=== PATIENT | male | born 1940 | race African-American/Black ===

== ENCOUNTER 2022-11-19 20:04 | Inpatient (IN) | payer MEDICARE, OTHER ==
[~2022-11-19 20:04] MED LIST: Iopamidol-370 76% 500 ML MDV (1 ML CHARGE) ONE
[2022-11-19 20:27] LABS: #Basophils 0.1 thou/uL (0.0-0.2); #Eosinphils 0.1 thou/uL (0.0-0.7); #Lymphocytes 2.3 thou/uL (1.20-3.40); #Monocytes 0.7 thou/uL (0.11-0.59); #Neutrophils 8.5 thou/uL (1.40-6.50); %Basophils 0.7 % (0.0-1.0); %Eosinophils 0.8 % (0.0-10.0); %Lymphocytes 19.9 % (21.0-51.0); %Monocytes 6.1 % (0.0-10.0); %Neutrophils 72.5 % (42.0-75.0); Hemoglobin 12.6 g/dL (14.0-18.0); Mean Corpuscular HGB CONC 33.8 g/dL (32.0-36.0); Mean Corpuscular Hemoglobin 33.7 pg (27.0-31.0); Mean Corpuscular Volume 99.9 fl (78.0-98.0); Mean Platelet Volume 9.5 fL (7.4-10.4); Platelet Count 167 10x3/uL (130-400); RBC Distribution Width 13.3 % (11.5-14.5); Red Blood Cell (RBC) Count 3.73 mill/uL (4.70-6.10); White Blood Cell (WBC) Count 11.7 10x3/uL (4.8-10.8)
[2022-11-19] MEDS ORDERED: Pantoprazole 80 MG, Admixture Fee 1 EACH in Sodium Chloride 0.9% 100 ML IVPB SCH (20:30)
[2022-11-19] MEDS ORDERED: Pantoprazole 40 MG VIAL ONE (20:38)
[2022-11-19 20:39] LABS: INR-International Normal Ratio 1.1; PTT 23.2 sec (22.9-36.1); Prothrombin Time 14.4 sec (12.0-14.7)
[2022-11-19 20:48] LABS: ALT (SGPT) 12 U/L (8-55); AST (SGOT) 18 U/L (5-34); Albumin 3.7 g/dL (3.4-4.8); Alkaline Phosphatase 62 U/L (40-110); Anion Gap 17 mmol/L (10-20); BUN (Urea Nitrogen) 20 mg/dL (8.4-25.7); Bilirubin, Total 0.8 mg/dL (0.2-1.2); Calc. Creatinine Clearance 0 mL/min (70-130); Calcium 8.7 mg/dL (7.8-10.44); Carbon Dioxide 20 mmol/L (23-31); Chloride 112 mmol/L (98-107); Estimated GFR 32; Globulin 3.1 g/dL (2.4-3.5); Glucose 124 mg/dL (83-110); Lipase 26 U/L (8-78); Magnesium 1.8 mg/dL (1.6-2.6); Potassium 3.7 mmol/L (3.5-5.1); Protein, Total 6.8 g/dL (5.8-8.1); Sodium 145 mmol/L (136-145)
[2022-11-19 21:08] LABS: CKMB 2.2 ng/mL (0-6.6)
[2022-11-19] MEDS ORDERED: Acetaminophen 325 MG TAB PO PRN (23:41)
[2022-11-20 01:16] LABS: Lactic Acid 2.5 mmol/L (0.5-2.2)
[2022-11-20] MEDS ORDERED: Sodium Chloride 0.9% 1,000 ML IV SCH ×2 (02:15→04:46)
[2022-11-20 04:19] LABS: Bacteria/HPF None Seen HPF (None Seen); Bilirubin Negative (Negative); Blood, Urine Negative (Negative); CAUTI Indications for Culture Dysuria,urgency,freq; Clarity Clear (Clear); Glucose, Urine (Dipstick) Normal (Negative); Ketone, Urine Negative (Negative); Leukocyte Negative Leu/uL (Negative); Nitrite Negative (Negative); Protein, Urine (Dipstick) 20 mg/dL (Neg-Trace); RBC/HPF 0-3 HPF (0-3); Specific Gravity, Urine 1.043 (1.002-1.036); Sperm/HPF Rare HPF (None Seen); Squamous Epithelial None Seen HPF (0-3); Urobilinogen Normal mg/dL (Less than 2); WBC/HPF 0-3 HPF (0-3); pH, Urine 5.5 (5.0-9.0)
[2022-11-20 04:20] LABS: Urine Culture Reflex No No
[2022-11-20 04:24] LABS: #Lymphocytes 2.2 thou/uL (1.20-3.40); #Monocytes 0.6 thou/uL (0.11-0.59); #Neutrophils 6.2 thou/uL (1.40-6.50); %Basophils 0.5 % (0.0-1.0); %Eosinophils 0.5 % (0.0-10.0); %Lymphocytes 24.6 % (21.0-51.0); %Monocytes 6.3 % (0.0-10.0); %Neutrophils 68.2 % (42.0-75.0); Hemoglobin 10.5 g/dL (14.0-18.0); Mean Corpuscular HGB CONC 32.6 g/dL (32.0-36.0); Mean Corpuscular Hemoglobin 32.9 pg (27.0-31.0); Mean Platelet Volume 9.9 fL (7.4-10.4); Platelet Count 132 10x3/uL (130-400); RBC Distribution Width 13.3 % (11.5-14.5); White Blood Cell (WBC) Count 9.1 10x3/uL (4.8-10.8)
[2022-11-20 04:43] LABS: Lactic Acid 4.1 mmol/L (0.5-2.2)
[2022-11-20 04:44] LABS: Anion Gap 15 mmol/L (10-20); BUN (Urea Nitrogen) 23 mg/dL (8.4-25.7); Calc. Creatinine Clearance 47 mL/min (70-130); Carbon Dioxide 16 mmol/L (23-31); Chloride 115 mmol/L (98-107); Estimated GFR 36; Glucose 156 mg/dL (83-110); Sodium 142 mmol/L (136-145)
[2022-11-20 04:55] LABS: Troponin I 0.074 ng/mL (< 0.028)
[2022-11-20] MEDS: Levothyroxine Sodium 50 MCG TAB PO SCH (04:59)
[2022-11-20] MEDS ORDERED: Sodium Chloride 0.9% 500 ML IV SCH (05:00)
[2022-11-20 05:52] LABS: Base Excess (BEa) -11.2 mEq/L (-2.0 to +3.0); CO2 Tension 30.3 mmHg (35.0-45.0); Calcium, Ionized (arterial) 1.11 mmol/L (1.12-1.30); Carboxyhemoglobin (COHb) 1.2 gm% (0.0-3.0); Hemoglobin (Hb) 9.6 g/dL (14.0-18.0); O2 Tension (PaO2), arterial 88.2 mmHg (> 60.0); Potassium - ABG Lab 3.85 mmol/L (3.70-5.30); pH, Arterial 7.29 (7.35-7.45)
[2022-11-20 05:53] LABS: Actual Bicarbonate (HCO3a) 14.2 mEq/L (22-28)
[2022-11-20] MEDS ORDERED: Meropenem 1 GM in Sodium Chloride 0.9% 100 ML IVPB SCH ×3 (06:00→23:59)
[2022-11-20] MEDS ORDERED: Sodium Bicarb 50 MEQ/50 ML VIAL IVP SCH ×2 (06:00)
[2022-11-20 06:29] LABS: #Lymphocytes 1.7 thou/uL (1.20-3.40); #Monocytes 0.8 thou/uL (0.11-0.59); #Neutrophils 8.5 thou/uL (1.40-6.50); %Basophils 0.1 % (0.0-1.0); %Eosinophils 0.3 % (0.0-10.0); %Lymphocytes 15.3 % (21.0-51.0); %Monocytes 7.2 % (0.0-10.0); %Neutrophils 77.1 % (42.0-75.0); Mean Corpuscular HGB CONC 33.4 g/dL (32.0-36.0); Mean Platelet Volume 9.4 fL (7.4-10.4); Platelet Count 137 10x3/uL (130-400); RBC Distribution Width 13.4 % (11.5-14.5); Red Blood Cell (RBC) Count 2.63 mill/uL (4.70-6.10)
[2022-11-20] MEDS: Sodium Bicarbonate 150 MEQ in Sterile Water 1,000 ML IV SCH ×3 (06:37→20:53)
[2022-11-20 06:54] LABS: Lactic Acid 6.4 mmol/L (0.5-2.2)
[2022-11-20 06:57] LABS: ALT (SGPT) 8 U/L (8-55); AST (SGOT) 13 U/L (5-34); Albumin 2.7 g/dL (3.4-4.8); Alkaline Phosphatase 45 U/L (40-110); Anion Gap 16 mmol/L (10-20); BUN (Urea Nitrogen) 24 mg/dL (8.4-25.7); Bilirubin, Total 0.8 mg/dL (0.2-1.2); Calc. Creatinine Clearance 45 mL/min (70-130); Calcium 7.6 mg/dL (7.8-10.44); Carbon Dioxide 17 mmol/L (23-31); Chloride 116 mmol/L (98-107); Estimated GFR 34; Globulin 2.1 g/dL (2.4-3.5); Glucose 140 mg/dL (83-110); Potassium 4.3 mmol/L (3.5-5.1); Protein, Total 4.8 g/dL (5.8-8.1); Sodium 145 mmol/L (136-145)
[2022-11-20 07:21] LABS: Lactic Acid 5.9 mmol/L (0.5-2.2)
[2022-11-20] MEDS ORDERED: Dextrose 5% in Water 1,000 ML IV PRN (07:26)
[2022-11-20] MEDS ORDERED: Dextrose 50% Abboject 50 ML SYRINGE SLOW IVP PRN (07:26)
[2022-11-20 07:29] LABS: Troponin I 0.069 ng/mL (< 0.028)
[2022-11-20] MEDS: Pantoprazole 40 MG VIAL IVP SCH ×2 (08:30→20:00)
[2022-11-20] MEDS: Lactated Ringer's 500 ML IV SCH ×2 (09:47→16:08)
[2022-11-20 10:35] LABS: Hemoglobin 9.4 g/dL (14.0-18.0)
[2022-11-20 10:47] LABS: INR-International Normal Ratio 1.2; Prothrombin Time 16.1 sec (12.0-14.7)
[2022-11-20 12:47] LABS: Hemoglobin 10.8 g/dL (14.0-18.0)
[2022-11-20 13:41] LABS: Troponin I 0.173 ng/mL (< 0.028)
[2022-11-20] MEDS ORDERED: Vasopressin 20 UNITS/ML VIAL ONE (14:02)
[2022-11-20] MEDS ORDERED: Labetalol HCl 100 MG/20 ML VIAL ONE (14:16)
[2022-11-20] MEDS ORDERED: Lidocaine 1% PF 5 ML VIAL ONE (14:16)
[2022-11-20 14:21] LABS: Lactic Acid 3.2 mmol/L (0.5-2.2)
[2022-11-20 19:13] LABS: Hemoglobin 9.7 g/dL (14.0-18.0)
[2022-11-20 20:47] LABS: Troponin I 0.308 ng/mL (< 0.028)
[2022-11-20] MEDS ORDERED: Albumin 25% 25 GM/100 ML BOT IVPB SCH (23:30)
[2022-11-21 04:32] LABS: Anion Gap 9 mmol/L (10-20); BUN (Urea Nitrogen) 28 mg/dL (8.4-25.7); Calc. Creatinine Clearance 48 mL/min (70-130); Calcium 7.1 mg/dL (7.8-10.44); Carbon Dioxide 29 mmol/L (23-31); Chloride 110 mmol/L (98-107); Estimated GFR 36; Glucose 102 mg/dL (83-110); Potassium 3.4 mmol/L (3.5-5.1); Sodium 145 mmol/L (136-145)
[2022-11-21 04:47] LABS: #Eosinphils 0.1 thou/uL (0.0-0.7); #Monocytes 0.7 thou/uL (0.11-0.59); #Neutrophils 5.8 thou/uL (1.40-6.50); %Basophils 0.4 % (0.0-1.0); %Lymphocytes 37.4 % (21.0-51.0); %Monocytes 6.3 % (0.0-10.0); Anisocytosis SLIGHT = 6-15 cells (100X) (0-5/hpf); Eosinophils 1 % (0-10); Large Platelets SLIGHT; Lymphocytes 25 % (21-51); MDiff Complete? YES; Mean Corpuscular HGB CONC 35.1 g/dL (32.0-36.0); Mean Corpuscular Volume 94.1 fl (78.0-98.0); Mean Platelet Volume 9.5 fL (7.4-10.4); Monocytes 8 % (0-10); Neutrophil 65 % (42-75); Platelet Count 80 10x3/uL (130-400); Platelet Morphology Comment Appears Decreased; Polychromasia SLIGHT = 2-3 cells (100X) (0-2/hpf); RBC Distribution Width 15.1 % (11.5-14.5); Red Blood Cell (RBC) Count 2.44 mill/uL (4.70-6.10); Smudge Cells SLIGHT; White Blood Cell (WBC) Count 10.6 10x3/uL (4.8-10.8)
[2022-11-21] MEDS: Levothyroxine Sodium 50 MCG TAB PO SCH (05:06)
[2022-11-21] MEDS: Sodium Bicarbonate 150 MEQ in Sterile Water 1,000 ML IV SCH ×2 (06:07→09:05)
[2022-11-21 07:43] LABS: Critical Call Chem Troponin I RESULT DECREASING; Troponin I 0.274 ng/mL (< 0.028)
[2022-11-21] MEDS: Pantoprazole 40 MG VIAL IVP SCH (09:08)
[2022-11-21 11:02] LABS: Hemoglobin 7.8 g/dL (14.0-18.0)
[2022-11-22 04:40] LABS: #Eosinphils 0.2 thou/uL (0.0-0.7); #Lymphocytes 2.5 thou/uL (1.20-3.40); #Monocytes 0.5 thou/uL (0.11-0.59); #Neutrophils 5.5 thou/uL (1.40-6.50); %Basophils 0.2 % (0.0-1.0); %Eosinophils 2.3 % (0.0-10.0); %Lymphocytes 28.7 % (21.0-51.0); %Monocytes 6.1 % (0.0-10.0); %Neutrophils 62.8 % (42.0-75.0); Hemoglobin 7.2 g/dL (14.0-18.0); Mean Corpuscular HGB CONC 33.4 g/dL (32.0-36.0); Mean Corpuscular Hemoglobin 31.6 pg (27.0-31.0); Mean Corpuscular Volume 94.6 fl (78.0-98.0); Mean Platelet Volume 10.1 fL (7.4-10.4); Platelet Count 84 10x3/uL (130-400); RBC Distribution Width 14.7 % (11.5-14.5); Red Blood Cell (RBC) Count 2.28 mill/uL (4.70-6.10); White Blood Cell (WBC) Count 8.7 10x3/uL (4.8-10.8)
[2022-11-22 04:43] LABS: Anion Gap 10 mmol/L (10-20); BUN (Urea Nitrogen) 15 mg/dL (8.4-25.7); Calc. Creatinine Clearance 66 mL/min (70-130); Calcium 7.5 mg/dL (7.8-10.44); Carbon Dioxide 27 mmol/L (23-31); Chloride 110 mmol/L (98-107); Estimated GFR 53; Glucose 95 mg/dL (83-110); Potassium 3.3 mmol/L (3.5-5.1); Sodium 144 mmol/L (136-145)
[2022-11-22 04:57] LABS: Troponin I 0.211 ng/mL (< 0.028)
[2022-11-22] MEDS: Levothyroxine Sodium 50 MCG TAB PO SCH (05:42)
[2022-11-23] MEDS ORDERED: Sodium Chloride 0.9% 1,000 ML IV SCH (06:00)
[2022-11-23 06:30] LABS: Hemoglobin 6.4 g/dL (14.0-18.0); Mean Corpuscular HGB CONC 35.4 g/dL (32.0-36.0); Platelet Count 99 10x3/uL (130-400); RBC Distribution Width 14.3 % (11.5-14.5); Red Blood Cell (RBC) Count 1.89 mill/uL (4.70-6.10)
[2022-11-23 06:55] LABS: Band 1 % (5-11); Eosinophils 1 % (0-10); Hypochromia SLIGHT = 6-15 cells (100X) (0-5/hpf); Lymphocytes 38 % (21-51); MDiff Complete? YES; Monocytes 7 % (0-10); Neutrophil 51 % (42-75); Platelet Morphology Comment Appears Decreased; Reactive Lymphocytes 2 % (0-10)
[2022-11-23] MEDS ORDERED: NOREPINEPHRINE 8 MG/250 ML-D5W 250 ML ONE (06:58)
[2022-11-23] MEDS ORDERED: EPINEPHrine 1 MG/10 ML Abboject SYRINGE ONE (06:59)
[2022-11-23] MEDS ORDERED: Heparin 1,000 UNITS/ML VIAL ONE (07:02)
[2022-11-23] MEDS ORDERED: Rocuronium Bromide 10 MG/ML (10ML VIAL) ONE (07:02)
[2022-11-23 07:06] LABS: Anion Gap 16 mmol/L (10-20); BUN (Urea Nitrogen) 11 mg/dL (8.4-25.7); Calc. Creatinine Clearance 51 mL/min (70-130); Calcium 7.7 mg/dL (7.8-10.44); Carbon Dioxide 19 mmol/L (23-31); Chloride 109 mmol/L (98-107); Estimated GFR 39; Glucose 154 mg/dL (83-110); Potassium 3.2 mmol/L (3.5-5.1); Sodium 141 mmol/L (136-145)
[2022-11-23] MEDS: Levothyroxine Sodium 50 MCG TAB PO SCH (07:23)
[2022-11-23] MEDS ORDERED: Ventilator Sedation Protocol 1 EACH FS ONE (07:25)
[2022-11-23] MEDS ORDERED: Lorazepam 2 MG/ML VIAL SLOW IVP PRN (07:30)
[2022-11-23] MEDS ORDERED: Fentanyl BOLUS 250 ML IVPB PRN (07:30)
[2022-11-23] MEDS ORDERED: DISCONTINUE PREVIOUS NARCOTIC PAIN MEDICATIONS AND BENZODIAZEPINES FS SCH (07:30)
[2022-11-23] MEDS ORDERED: Fentanyl CADD 100 ML IV SCH (07:30)
[2022-11-23] MEDS ORDERED: Propofol BOLUS 1,000 MG/100 ML VIAL IV PRN (07:30)
[2022-11-23] MEDS ORDERED: Morphine 2 MG/ML VIAL SLOW IVP PRN (07:30)
[2022-11-23 07:41] LABS: Actual Bicarbonate (HCO3a) 22.1 mEq/L (22-28); Base Excess (BEa) -3.1 mEq/L (-2.0 to +3.0); CO2 Tension 39.8 mmHg (35.0-45.0); Calcium, Ionized (arterial) 1.03 mmol/L (1.12-1.30); Carboxyhemoglobin (COHb) 0.7 gm% (0.0-3.0); O2 Tension (PaO2), arterial 191.6 mmHg (> 60.0); Potassium - ABG Lab 3.59 mmol/L (3.70-5.30); pH, Arterial 7.36 (7.35-7.45)
[2022-11-23 07:44] LABS: Puncture Site RRA
[2022-11-23] MEDS ORDERED: Rocuronium Bromide 10 MG/ML (10ML VIAL) IVP SCH (07:45)
[2022-11-23] MEDS ORDERED: Dextrose 5% in Water 1,000 ML IV PRN ×2 (07:53→12:47)
[2022-11-23] MEDS ORDERED: Dextrose 50% Abboject 50 ML SYRINGE SLOW IVP PRN ×2 (07:53→12:47)
[2022-11-23] MEDS: Sodium Chloride 0.9% 1,000 ML IV SCH ×2 (07:57→21:59)
[2022-11-23] MEDS ORDERED: Electrolyte Replacement Protocol 1 EACH FS SCH (08:45)
[2022-11-23] MEDS ORDERED: Electrolyte Replacement Protocol FS PRN (08:45)
[2022-11-23] MEDS ORDERED: Ventilator Sedation Protocol 1 EACH FS SCH (08:45)
[2022-11-23] MEDS: Pantoprazole 40 MG VIAL IVP SCH ×2 (09:23→22:09)
[2022-11-23] MEDS: Propofol 1,000 MG/100 ML VIAL IV PRN ×2 (09:25→22:29)
[2022-11-23 09:57] LABS: INR-International Normal Ratio 1.3; PTT 27.7 sec (22.9-36.1); Prothrombin Time 16.6 sec (12.0-14.7)
[2022-11-23] MEDS ORDERED: Potassium Chloride 40 MEQ, Magnesium Sulfate 2 GM in Sodium Chloride 0.9% 250 ML 250 ML IVPB SCH (10:15)
[2022-11-23] MEDS: NOREPINEPHRINE 8 MG/250 ML-D5W 250 ML IVPB SCH ×2 (11:20→18:12)
[2022-11-23] MEDS ORDERED: HumaLOG 300 UNITS/3 ML VIAL SC PRN (12:47)
[2022-11-23 14:16] LABS: Hemoglobin 7.6 g/dL (14.0-18.0)
[2022-11-23 14:17] LABS: #Eosinphils 0.1 thou/uL (0.0-0.7); #Lymphocytes 2.5 thou/uL (1.20-3.40); #Monocytes 1.2 thou/uL (0.11-0.59); #Neutrophils 9.3 thou/uL (1.40-6.50); %Basophils 0.2 % (0.0-1.0); %Eosinophils 0.5 % (0.0-10.0); %Lymphocytes 19.1 % (21.0-51.0); %Monocytes 9.2 % (0.0-10.0); %Neutrophils 70.9 % (42.0-75.0); Hemoglobin 7.7 g/dL (14.0-18.0); Mean Corpuscular HGB CONC 35.4 g/dL (32.0-36.0); Mean Corpuscular Hemoglobin 32.8 pg (27.0-31.0); Mean Corpuscular Volume 92.5 fl (78.0-98.0); Mean Platelet Volume 9.2 fL (7.4-10.4); Platelet Count 105 10x3/uL (130-400); RBC Distribution Width 14.4 % (11.5-14.5); Red Blood Cell (RBC) Count 2.33 mill/uL (4.70-6.10); White Blood Cell (WBC) Count 13.2 10x3/uL (4.8-10.8)
[2022-11-23 14:26] LABS: INR-International Normal Ratio 1.3; PTT 25.4 sec (22.9-36.1); Prothrombin Time 16.6 sec (12.0-14.7)
[2022-11-23 14:40] LABS: Anion Gap 11 mmol/L (10-20); BUN (Urea Nitrogen) 16 mg/dL (8.4-25.7); Calc. Creatinine Clearance 36 mL/min (70-130); Carbon Dioxide 20 mmol/L (23-31); Chloride 113 mmol/L (98-107); Estimated GFR 25; Glucose 125 mg/dL (83-110); Potassium 4.4 mmol/L (3.5-5.1); Sodium 140 mmol/L (136-145)
[2022-11-23] MEDS ORDERED: CALCIUM GLUC 1 GM/NS 50 ML 1 GM in Premix Bag 1 BAG IVPB SCH (14:45)
[2022-11-23] MEDS ORDERED: Lactated Ringer's 500 ML IV SCH (15:45)
[2022-11-23 18:03] LABS: Hemoglobin 7.9 g/dL (14.0-18.0)
[2022-11-23 18:23] LABS: Potassium 4.8 mmol/L (3.5-5.1)
[2022-11-23] MEDS ORDERED: Sodium Chloride 0.9% 500 ML IV SCH (21:45)
[2022-11-23 21:46] LABS: Hemoglobin 8.1 g/dL (14.0-18.0)
[2022-11-24] MEDS ORDERED: Albumin 25% 25 GM/100 ML BOT IVPB SCH (01:15)
[2022-11-24] MEDS ORDERED: Sodium Chloride 0.9% 500 ML IV SCH (01:15)
[2022-11-24] MEDS: Sodium Chloride 0.9% 1,000 ML IV SCH ×3 (01:20→12:36)
[2022-11-24 04:52] LABS: INR-International Normal Ratio 1.2; Magnesium 1.8 mg/dL (1.6-2.6); PTT 31.2 sec (22.9-36.1)
[2022-11-24 05:28] LABS: Anisocytosis SLIGHT = 6-15 cells (100X) (0-5/hpf); Band 3 % (5-11); Burr Cells SLIGHT = 2-5 cells (100X) (0-1/hpf); Eosinophils 1 % (0-10); Hemoglobin 7.1 g/dL (14.0-18.0); Lymphocytes 21 % (21-51); MDiff Complete? YES; Mean Corpuscular HGB CONC 37.5 g/dL (32.0-36.0); Mean Corpuscular Hemoglobin 34.3 pg (27.0-31.0); Mean Corpuscular Volume 91.5 fl (78.0-98.0); Monocytes 6 % (0-10); Neutrophil 69 % (42-75); Nucleated RBC (Manual Ct) 1 % (0); Platelet Count 103 10x3/uL (130-400); Platelet Morphology Comment Appears Decreased; Polychromasia SLIGHT = 2-3 cells (100X) (0-2/hpf); RBC Distribution Width 14.9 % (11.5-14.5); Red Blood Cell (RBC) Count 2.09 mill/uL (4.70-6.10); Target Cells SLIGHT = 2-5 cells (100X) (0-1/hpf); White Blood Cell (WBC) Count 12.6 10x3/uL (4.8-10.8)
[2022-11-24] MEDS: NOREPINEPHRINE 8 MG/250 ML-D5W 250 ML IVPB SCH (05:36)
[2022-11-24] MEDS: Levothyroxine Sodium 50 MCG TAB PO SCH (05:38)
[2022-11-24] MEDS ORDERED: Magnesium 2 GM/50 ML(in water) 2 GM in Premix Bag 1 BAG IVPB SCH ×2 (09:00→12:45)
[2022-11-24 12:02] LABS: Hemoglobin 7.3 g/dL (14.0-18.0)
[2022-11-24] MEDS: Albumin 25% 25 GM/100 ML BOT IVPB SCH ×3 (12:35→21:41)
[2022-11-24] MEDS: Pantoprazole 40 MG VIAL IVP SCH ×2 (12:35→21:40)
[2022-11-25] MEDS: Sodium Chloride 0.9% 1,000 ML IV SCH ×2 (03:09→21:17)
[2022-11-25 04:12] LABS: Magnesium 2.2 mg/dL (1.6-2.6)
[2022-11-25] MEDS: Levothyroxine Sodium 50 MCG TAB PO SCH (05:54)
[2022-11-25] MEDS: Pantoprazole 40 MG VIAL IVP SCH ×2 (09:47→21:19)
[2022-11-25 11:37] LABS: Hemoglobin 7.4 g/dL (14.0-18.0)
[2022-11-25 23:57] LABS: Hemoglobin 6.3 g/dL (14.0-18.0); Mean Corpuscular Hemoglobin 33.9 pg (27.0-31.0); Mean Platelet Volume 8.7 fL (7.4-10.4); Platelet Count 127 10x3/uL (130-400); RBC Distribution Width 15.8 % (11.5-14.5); Red Blood Cell (RBC) Count 1.85 mill/uL (4.70-6.10); White Blood Cell (WBC) Count 10.1 10x3/uL (4.8-10.8)
[2022-11-26] MEDS ORDERED: Morphine 4 MG/ML VIAL SLOW IVP PRN (03:33)
[2022-11-26 04:55] LABS: #Lymphocytes 1.1 thou/uL (1.20-3.40); #Monocytes 0.7 thou/uL (0.11-0.59); #Neutrophils 7.6 thou/uL (1.40-6.50); %Basophils 0.1 % (0.0-1.0); %Eosinophils 0.4 % (0.0-10.0); %Lymphocytes 11.7 % (21.0-51.0); %Monocytes 7.4 % (0.0-10.0); %Neutrophils 80.4 % (42.0-75.0); Hemoglobin 6.6 g/dL (14.0-18.0); Mean Corpuscular HGB CONC 34.9 g/dL (32.0-36.0); Mean Corpuscular Hemoglobin 32.5 pg (27.0-31.0); Mean Corpuscular Volume 93.1 fl (78.0-98.0); Mean Platelet Volume 8.8 fL (7.4-10.4); Platelet Count 130 10x3/uL (130-400); RBC Distribution Width 15.1 % (11.5-14.5); Red Blood Cell (RBC) Count 2.01 mill/uL (4.70-6.10); White Blood Cell (WBC) Count 9.4 10x3/uL (4.8-10.8)
[2022-11-26 05:16] LABS: Anion Gap 17 mmol/L (10-20); BUN (Urea Nitrogen) 24 mg/dL (8.4-25.7); Calc. Creatinine Clearance 42 mL/min (70-130); Carbon Dioxide 14 mmol/L (23-31); Chloride 118 mmol/L (98-107); Estimated GFR 30; Glucose 93 mg/dL (83-110); Potassium 3.8 mmol/L (3.5-5.1); Sodium 145 mmol/L (136-145)
[2022-11-26] MEDS: Levothyroxine Sodium 50 MCG TAB PO SCH (05:37)
[2022-11-26 07:48] LABS: Hemoglobin 6.9 g/dL (14.0-18.0); Mean Corpuscular HGB CONC 34.5 g/dL (32.0-36.0); Mean Corpuscular Hemoglobin 32.2 pg (27.0-31.0); Mean Corpuscular Volume 93.4 fl (78.0-98.0); Mean Platelet Volume 8.8 fL (7.4-10.4); Platelet Count 127 10x3/uL (130-400); Red Blood Cell (RBC) Count 2.15 mill/uL (4.70-6.10); White Blood Cell (WBC) Count 9.6 10x3/uL (4.8-10.8)
[2022-11-26] MEDS: Pantoprazole 40 MG VIAL IVP SCH ×2 (09:36→22:55)
[2022-11-26 18:41] LABS: #Eosinphils 0.1 thou/uL (0.0-0.7); #Lymphocytes 1.5 thou/uL (1.20-3.40); #Monocytes 0.8 thou/uL (0.11-0.59); #Neutrophils 7.7 thou/uL (1.40-6.50); %Eosinophils 1.2 % (0.0-10.0); %Lymphocytes 14.7 % (21.0-51.0); %Monocytes 7.9 % (0.0-10.0); %Neutrophils 76.2 % (42.0-75.0); Hemoglobin 7.9 g/dL (14.0-18.0); Mean Corpuscular HGB CONC 33.9 g/dL (32.0-36.0); Mean Corpuscular Hemoglobin 31.4 pg (27.0-31.0); Mean Corpuscular Volume 92.5 fl (78.0-98.0); Mean Platelet Volume 8.7 fL (7.4-10.4); Platelet Count 126 10x3/uL (130-400); RBC Distribution Width 14.6 % (11.5-14.5); Red Blood Cell (RBC) Count 2.53 mill/uL (4.70-6.10); White Blood Cell (WBC) Count 10.2 10x3/uL (4.8-10.8)
[2022-11-26] MEDS ORDERED: Lorazepam 2 MG/ML VIAL SLOW IVP PRN (19:39)
[2022-11-26] MEDS ORDERED: Lorazepam 2 MG/ML VIAL ONE (19:39)
[2022-11-26] MEDS: Lorazepam 2 MG/ML VIAL SLOW IVP PRN ×2 (20:42→21:16)
[2022-11-26] MEDS: Sodium Chloride 0.9% 1,000 ML IV SCH (22:55)
[2022-11-26] MEDS: Labetalol HCl 100 MG/20 ML VIAL SLOW IVP PRN (23:13)
[2022-11-27] MEDS ORDERED: Morphine 4 MG/ML VIAL ONE (01:18)
[2022-11-27] MEDS: Morphine 4 MG/ML VIAL SLOW IVP PRN ×2 (01:25→08:14)
[2022-11-27 02:16] LABS: #Eosinphils 0.2 thou/uL (0.0-0.7); #Lymphocytes 1.5 thou/uL (1.20-3.40); #Monocytes 0.8 thou/uL (0.11-0.59); #Neutrophils 7.8 thou/uL (1.40-6.50); %Basophils 0.3 % (0.0-1.0); %Eosinophils 1.7 % (0.0-10.0); %Lymphocytes 14.2 % (21.0-51.0); %Neutrophils 75.7 % (42.0-75.0); Hemoglobin 8.2 g/dL (14.0-18.0); Mean Corpuscular HGB CONC 34.4 g/dL (32.0-36.0); Mean Corpuscular Volume 92.9 fl (78.0-98.0); Mean Platelet Volume 9.1 fL (7.4-10.4); Platelet Count 132 10x3/uL (130-400); RBC Distribution Width 14.9 % (11.5-14.5); Red Blood Cell (RBC) Count 2.57 mill/uL (4.70-6.10); White Blood Cell (WBC) Count 10.3 10x3/uL (4.8-10.8)
[2022-11-27 02:34] LABS: Anion Gap 15 mmol/L (10-20); BUN (Urea Nitrogen) 18 mg/dL (8.4-25.7); Calc. Creatinine Clearance 48 mL/min (70-130); Carbon Dioxide 17 mmol/L (23-31); Chloride 116 mmol/L (98-107); Estimated GFR 35; Glucose 81 mg/dL (83-110); Potassium 3.7 mmol/L (3.5-5.1); Sodium 144 mmol/L (136-145)
[2022-11-27] MEDS: Labetalol HCl 100 MG/20 ML VIAL SLOW IVP PRN ×4 (04:20→18:07)
[2022-11-27] MEDS: Levothyroxine Sodium 50 MCG TAB PO SCH (05:48)
[2022-11-27] MEDS: Pantoprazole 40 MG VIAL IVP SCH ×2 (08:13→21:16)
[2022-11-27] MEDS: Sodium Chloride 0.9% 1,000 ML IV SCH (20:08)
[2022-11-27] MEDS ORDERED: CEFAZOLIN 2 GM VIAL ONE (20:53)
[2022-11-27] MEDS ORDERED: Sodium Chloride 0.9% 100 ML ONE (20:53)
[2022-11-27] MEDS ORDERED: cefOXitin 2 GM VIAL ONE (21:16)
[2022-11-27] MEDS ORDERED: Fentanyl 250 MCG/5 ML VIAL ONE (21:27)
[2022-11-27] MEDS ORDERED: Phenylephrine 10 MG/ML VIAL ONE (21:28)
[2022-11-27] MEDS ORDERED: Vecuronium 10 MG VIAL ONE (21:58)
[2022-11-27] MEDS ORDERED: Rocuronium Bromide 10 MG/ML (10ML VIAL) ONE (21:58)
[2022-11-27] MEDS ORDERED: Lidocaine 1% PF 5 ML VIAL ONE (21:58)
[2022-11-27] MEDS ORDERED: ePHEDrine Sulfate 50 MG/10 ML VIAL ONE (21:58)
[2022-11-27] MEDS ORDERED: PROPOFOL 200 MG/20 ML VIAL ONE (21:58)
[2022-11-27] MEDS ORDERED: Morphine 2 MG/ML VIAL SLOW IVP PRN (22:58)
[2022-11-27] MEDS ORDERED: Morphine 4 MG/ML VIAL SLOW IVP PRN (22:58)
[2022-11-27] MEDS ORDERED: Piperacillin/Tazobactam 3.375 GM in Sodium Chloride 0.9% 100 ML IVPB SCH ×2 (23:00→23:15)
[2022-11-27] MEDS ORDERED: Promethazine HCl 25 MG/ML VIAL IM PRN (23:32)
[2022-11-27] MEDS ORDERED: Ondansetron HCl/PF 4 MG/2 ML Vial IVP PRN (23:32)
[2022-11-28 01:48] LABS: #Eosinphils 0.2 thou/uL (0.0-0.7); #Lymphocytes 0.9 thou/uL (1.20-3.40); #Monocytes 0.4 thou/uL (0.11-0.59); #Neutrophils 6.1 thou/uL (1.40-6.50); %Eosinophils 3.3 % (0.0-10.0); %Lymphocytes 11.5 % (21.0-51.0); %Monocytes 5.5 % (0.0-10.0); %Neutrophils 79.7 % (42.0-75.0); Hemoglobin 8.5 g/dL (14.0-18.0); Mean Corpuscular HGB CONC 35.3 g/dL (32.0-36.0); Mean Corpuscular Hemoglobin 33.6 pg (27.0-31.0); Mean Corpuscular Volume 95.1 fl (78.0-98.0); Mean Platelet Volume 8.4 fL (7.4-10.4); Platelet Count 157 10x3/uL (130-400); RBC Distribution Width 15.7 % (11.5-14.5); Red Blood Cell (RBC) Count 2.52 mill/uL (4.70-6.10); White Blood Cell (WBC) Count 7.7 10x3/uL (4.8-10.8)
[2022-11-28] MEDS ORDERED: Ventilator Sedation Protocol 1 EACH FS ONE (01:48)
[2022-11-28] MEDS ORDERED: Lorazepam 2 MG/ML VIAL SLOW IVP PRN (02:00)
[2022-11-28] MEDS ORDERED: Propofol BOLUS 1,000 MG/100 ML VIAL IV PRN (02:00)
[2022-11-28] MEDS ORDERED: Morphine 2 MG/ML VIAL SLOW IVP PRN (02:00)
[2022-11-28] MEDS ORDERED: Fentanyl BOLUS 250 ML IVPB PRN (02:00)
[2022-11-28] MEDS ORDERED: Propofol 1,000 MG/100 ML VIAL IV PRN (02:00)
[2022-11-28] MEDS ORDERED: Fentanyl CADD 100 ML IV SCH (02:00)
[2022-11-28] MEDS ORDERED: DISCONTINUE PREVIOUS NARCOTIC PAIN MEDICATIONS AND BENZODIAZEPINES FS SCH (02:00)
[2022-11-28 02:07] LABS: Anion Gap 16 mmol/L (10-20); BUN (Urea Nitrogen) 16 mg/dL (8.4-25.7); Calc. Creatinine Clearance 49 mL/min (70-130); Calcium 7.5 mg/dL (7.8-10.44); Carbon Dioxide 16 mmol/L (23-31); Chloride 118 mmol/L (98-107); Estimated GFR 36; Glucose 99 mg/dL (83-110); Magnesium 1.7 mg/dL (1.6-2.6); Phosphorus 4.5 mg/dL (2.3-4.7); Potassium 4.6 mmol/L (3.5-5.1); Sodium 145 mmol/L (136-145)
[2022-11-28 02:09] LABS: Anion Gap 15 mmol/L (10-20); BUN (Urea Nitrogen) 17 mg/dL (8.4-25.7); Calc. Creatinine Clearance 50 mL/min (70-130); Calcium 7.4 mg/dL (7.8-10.44); Carbon Dioxide 17 mmol/L (23-31); Chloride 118 mmol/L (98-107); Estimated GFR 37; Glucose 101 mg/dL (83-110); Potassium 4.6 mmol/L (3.5-5.1); Sodium 145 mmol/L (136-145)
[2022-11-28] MEDS: Sodium Chloride 0.9% 1,000 ML IV SCH ×5 (02:23→21:20)
[2022-11-28] MEDS ORDERED: Magnesium 2 GM/50 ML(in water) 2 GM in Premix Bag 1 BAG IVPB SCH (02:45)
[2022-11-28] MEDS: Labetalol HCl 100 MG/20 ML VIAL SLOW IVP PRN ×2 (03:04→12:29)
[2022-11-28] MEDS ORDERED: Piperacillin/Tazobactam 3.375 GM in Sodium Chloride 0.9% 100 ML IVPB SCH (04:00)
[2022-11-28 04:46] LABS: #Eosinphils 0.1 thou/uL (0.0-0.7); #Monocytes 0.6 thou/uL (0.11-0.59); %Basophils 0.3 % (0.0-1.0); %Eosinophils 0.8 % (0.0-10.0); %Lymphocytes 11.8 % (21.0-51.0); %Monocytes 7.3 % (0.0-10.0); %Neutrophils 79.9 % (42.0-75.0); Hemoglobin 8.6 g/dL (14.0-18.0); Mean Corpuscular HGB CONC 33.6 g/dL (32.0-36.0); Mean Corpuscular Volume 95.1 fl (78.0-98.0); Mean Platelet Volume 8.5 fL (7.4-10.4); Platelet Count 154 10x3/uL (130-400); RBC Distribution Width 15.9 % (11.5-14.5); Red Blood Cell (RBC) Count 2.68 mill/uL (4.70-6.10); White Blood Cell (WBC) Count 8.8 10x3/uL (4.8-10.8)
[2022-11-28 05:08] LABS: Phosphorus 4.2 mg/dL (2.3-4.7)
[2022-11-28 05:10] LABS: Anion Gap 17 mmol/L (10-20); BUN (Urea Nitrogen) 16 mg/dL (8.4-25.7); Calc. Creatinine Clearance 52 mL/min (70-130); Calcium 7.7 mg/dL (7.8-10.44); Carbon Dioxide 16 mmol/L (23-31); Chloride 117 mmol/L (98-107); Estimated GFR 39; Glucose 102 mg/dL (83-110); Magnesium 2.1 mg/dL (1.6-2.6); Potassium 4.5 mmol/L (3.5-5.1); Sodium 145 mmol/L (136-145)
[2022-11-28] MEDS: Levothyroxine Sodium 50 MCG TAB PO SCH (06:02)
[2022-11-28] MEDS: Piperacillin/Tazobactam 3.375 GM in Sodium Chloride 0.9% 100 ML IVPB SCH ×3 (06:05→21:34)
[2022-11-28] MEDS: Pantoprazole 40 MG VIAL IVP SCH ×2 (08:03→21:17)
[2022-11-28] MEDS ORDERED: DC Sedation Protocol FS ONE (09:08)
[2022-11-28] MEDS ORDERED: oxyCODONE 5 MG TAB PO PRN (09:23)
[2022-11-28] MEDS: Morphine 2 MG/ML VIAL SLOW IVP PRN ×2 (11:09→17:59)
[2022-11-28] MEDS: Acetaminophen 500 MG TAB PO SCH ×2 (15:39→21:15)
[2022-11-29] MEDS: Sodium Chloride 0.9% 1,000 ML IV SCH (04:40)
[2022-11-29 04:43] LABS: Hemoglobin 6.8 g/dL (14.0-18.0); Mean Corpuscular HGB CONC 29.5 g/dL (32.0-36.0); Mean Corpuscular Hemoglobin 28.7 pg (27.0-31.0); Mean Corpuscular Volume 97.4 fl (78.0-98.0); Mean Platelet Volume 8.4 fL (7.4-10.4); Platelet Count 192 10x3/uL (130-400); RBC Distribution Width 16.8 % (11.5-14.5); Red Blood Cell (RBC) Count 2.39 mill/uL (4.70-6.10)
[2022-11-29 04:50] LABS: Phosphorus 3.4 mg/dL (2.3-4.7)
[2022-11-29 05:01] LABS: Anion Gap 17 mmol/L (10-20); BUN (Urea Nitrogen) 15 mg/dL (8.4-25.7); Calc. Creatinine Clearance 51 mL/min (70-130); Calcium 7.4 mg/dL (7.8-10.44); Carbon Dioxide 14 mmol/L (23-31); Chloride 121 mmol/L (98-107); Estimated GFR 38; Glucose 83 mg/dL (83-110); Magnesium 1.8 mg/dL (1.6-2.6); Sodium 148 mmol/L (136-145)
[2022-11-29 05:25] LABS: Band 9 % (5-11); Eosinophils 2 % (0-10); Lymphocytes 11 % (21-51); MDiff Complete? YES; Monocytes 6 % (0-10); Neutrophil 72 % (42-75); Nucleated RBC (Manual Ct) 1 % (0); Polychromasia SLIGHT = 2-3 cells (100X) (0-2/hpf); White Blood Cell (WBC) Count 8.6 10x3/uL (4.8-10.8)
[2022-11-29] MEDS: Piperacillin/Tazobactam 3.375 GM in Sodium Chloride 0.9% 100 ML IVPB SCH ×3 (05:32→21:42)
[2022-11-29] MEDS: Levothyroxine Sodium 50 MCG TAB PO SCH (05:32)
[2022-11-29 06:15] LABS: INR-International Normal Ratio 1.3; PTT 34.6 sec (22.9-36.1); Prothrombin Time 16.8 sec (12.0-14.7)
[2022-11-29] MEDS ORDERED: Magnesium 2 GM/50 ML(in water) 2 GM in Premix Bag 1 BAG IVPB SCH (08:00)
[2022-11-29] MEDS: Acetaminophen 500 MG TAB PO SCH ×3 (08:08→21:40)
[2022-11-29] MEDS: Pantoprazole 40 MG VIAL IVP SCH ×2 (08:10→21:42)
[2022-11-29] MEDS ORDERED: Sodium Chloride 0.9% 1,000 ML IV SCH (08:16)
[2022-11-29] MEDS ORDERED: Lactated Ringer's 1,000 ML IV SCH (09:00)
[2022-11-29] MEDS ORDERED: Dextrose 5% in Water 1,000 ML IV SCH (09:00)
[2022-11-29] MEDS ORDERED: Sodium Bicarbonate 100 MEQ in Dextrose 5% in Water 1,000 ML IV SCH (10:00)
[2022-11-29 12:33] LABS: Hemoglobin 9.2 g/dL (14.0-18.0)
[2022-11-29] MEDS: Labetalol HCl 100 MG/20 ML VIAL SLOW IVP PRN ×2 (13:02→22:05)
[2022-11-29] MEDS ORDERED: Dexmedetomidine In 0.9 % NaCl 100 ML IVPB SCH (15:00)
[2022-11-29] MEDS: Lactated Ringer's 1,000 ML IV SCH (15:15)
[2022-11-29] MEDS ORDERED: Furosemide 40 MG/4 ML VIAL SLOW IVP SCH (19:00)
[2022-11-30] MEDS: Lactated Ringer's 1,000 ML IV SCH ×4 (01:09→16:09)
[2022-11-30] MEDS: Labetalol HCl 100 MG/20 ML VIAL SLOW IVP PRN ×4 (03:34→23:03)
[2022-11-30 04:15] LABS: Hemoglobin 8.7 g/dL (14.0-18.0); Mean Corpuscular HGB CONC 33.3 g/dL (32.0-36.0); Mean Corpuscular Hemoglobin 32.3 pg (27.0-31.0); Mean Corpuscular Volume 97.1 fl (78.0-98.0); Mean Platelet Volume 8.2 fL (7.4-10.4); Platelet Count 214 10x3/uL (130-400); RBC Distribution Width 15.8 % (11.5-14.5); Red Blood Cell (RBC) Count 2.69 mill/uL (4.70-6.10); White Blood Cell (WBC) Count 10.5 10x3/uL (4.8-10.8)
[2022-11-30 04:31] LABS: Anion Gap 15 mmol/L (10-20); BUN (Urea Nitrogen) 12 mg/dL (8.4-25.7); Calc. Creatinine Clearance 52 mL/min (70-130); Calcium 8.1 mg/dL (7.8-10.44); Carbon Dioxide 17 mmol/L (23-31); Chloride 116 mmol/L (98-107); Estimated GFR 37; Glucose 110 mg/dL (83-110); Magnesium 1.9 mg/dL (1.6-2.6); Potassium 3.8 mmol/L (3.5-5.1); Sodium 144 mmol/L (136-145)
[2022-11-30 04:43] LABS: Anisocytosis SLIGHT = 6-15 cells (100X) (0-5/hpf); Eosinophils 2 % (0-10); Large Platelets SLIGHT; Lymphocytes 9 % (21-51); MDiff Complete? YES; Monocytes 6 % (0-10); Neutrophil 82 % (42-75); Platelet Morphology Comment Appears Adequate; Polychromasia MODERATE = 3-4 cells (100X) (0-2/hpf)
[2022-11-30] MEDS: Piperacillin/Tazobactam 3.375 GM in Sodium Chloride 0.9% 100 ML IVPB SCH ×3 (06:53→21:21)
[2022-11-30] MEDS ORDERED: Magnesium 2 GM/50 ML(in water) 2 GM in Premix Bag 1 BAG IVPB SCH (08:00)
[2022-11-30] MEDS: Pantoprazole 40 MG VIAL IVP SCH ×2 (09:09→21:20)
[2022-11-30] MEDS: Acetaminophen 500 MG TAB PO SCH ×3 (09:09→22:47)
[2022-11-30] MEDS ORDERED: NIFEdipine XL 30 MG TAB PO SCH (16:45)
[2022-11-30] MEDS ORDERED: cloNIDine 0.1 MG TAB PO SCH (16:45)
[2022-11-30] MEDS ORDERED: Metoclopramide HCl 10 MG/2 ML VIAL IVP SCH (22:00)
[2022-12-01] MEDS: Lactated Ringer's 1,000 ML IV SCH ×6 (01:00→20:45)
[2022-12-01] MEDS: Piperacillin/Tazobactam 3.375 GM in Sodium Chloride 0.9% 100 ML IVPB SCH ×3 (06:15→22:26)
[2022-12-01] MEDS: Pantoprazole 40 MG VIAL IVP SCH ×2 (08:35→20:45)
[2022-12-01] MEDS: NIFEdipine XL 30 MG TAB PO SCH (08:36)
[2022-12-01] MEDS: Acetaminophen 500 MG TAB PO SCH ×3 (08:36→20:52)
[2022-12-01] MEDS ORDERED: cloNIDine 0.1 MG TAB PO SCH (09:00)
[2022-12-01] MEDS: Labetalol HCl 100 MG/20 ML VIAL SLOW IVP PRN ×2 (10:33→23:18)
[2022-12-01] MEDS ORDERED: Levothyroxine 100 MCG SDV IVP SCH (10:45)
[2022-12-01 12:19] LABS: #Eosinphils 0.5 thou/uL (0.0-0.7); #Lymphocytes 1.1 thou/uL (1.20-3.40); #Monocytes 0.6 thou/uL (0.11-0.59); #Neutrophils 9.1 thou/uL (1.40-6.50); %Basophils 0.1 % (0.0-1.0); %Eosinophils 4.2 % (0.0-10.0); %Lymphocytes 9.8 % (21.0-51.0); %Monocytes 4.9 % (0.0-10.0); %Neutrophils 80.9 % (42.0-75.0); Hemoglobin 9.4 g/dL (14.0-18.0); Mean Corpuscular HGB CONC 33.3 g/dL (32.0-36.0); Mean Corpuscular Hemoglobin 31.9 pg (27.0-31.0); Mean Corpuscular Volume 95.8 fl (78.0-98.0); Mean Platelet Volume 7.8 fL (7.4-10.4); Platelet Count 294 10x3/uL (130-400); RBC Distribution Width 15.7 % (11.5-14.5); Red Blood Cell (RBC) Count 2.93 mill/uL (4.70-6.10); White Blood Cell (WBC) Count 11.2 10x3/uL (4.8-10.8)
[2022-12-01] MEDS: NEOSTIGMINE 3 MG/3 ML SYR 3 MG/3 ML SYRINGE FS SCH ×2 (12:30→20:33)
[2022-12-01 12:39] LABS: Anion Gap 14 mmol/L (10-20); BUN (Urea Nitrogen) 12 mg/dL (8.4-25.7); Calc. Creatinine Clearance 52 mL/min (70-130); Calcium 8.2 mg/dL (7.8-10.44); Carbon Dioxide 21 mmol/L (23-31); Chloride 115 mmol/L (98-107); Estimated GFR 39; Glucose 100 mg/dL (83-110); Potassium 3.5 mmol/L (3.5-5.1); Sodium 146 mmol/L (136-145)
[2022-12-01] MEDS ORDERED: Lactated Ringer's 500 ML IV SCH (18:00)
[2022-12-01] MEDS: Potassium Chloride 20 MEQ in Premix Bag 1 BAG IVPB SCH (22:43)
[2022-12-02] MEDS: Potassium Chloride 20 MEQ in Premix Bag 1 BAG IVPB SCH (00:46)
[2022-12-02] MEDS: NEOSTIGMINE 3 MG/3 ML SYR 3 MG/3 ML SYRINGE FS SCH ×2 (00:48→05:35)
[2022-12-02] MEDS: Lactated Ringer's 1,000 ML IV SCH ×4 (02:53→23:22)
[2022-12-02] MEDS ORDERED: cloNIDine 0.1mg/24 Hour PATCH TD SCH (04:00)
[2022-12-02] MEDS: Piperacillin/Tazobactam 3.375 GM in Sodium Chloride 0.9% 100 ML IVPB SCH (05:36)
[2022-12-02] MEDS ORDERED: Levothyroxine 100 MCG SDV IVP SCH (06:00)
[2022-12-02 08:04] LABS: #Eosinphils 0.5 thou/uL (0.0-0.7); #Monocytes 0.6 thou/uL (0.11-0.59); #Neutrophils 7.3 thou/uL (1.40-6.50); %Basophils 0.2 % (0.0-1.0); %Eosinophils 5.1 % (0.0-10.0); %Lymphocytes 10.4 % (21.0-51.0); %Monocytes 6.7 % (0.0-10.0); %Neutrophils 77.6 % (42.0-75.0); Hemoglobin 8.9 g/dL (14.0-18.0); Mean Corpuscular HGB CONC 32.8 g/dL (32.0-36.0); Mean Corpuscular Hemoglobin 31.8 pg (27.0-31.0); Mean Platelet Volume 7.7 fL (7.4-10.4); Platelet Count 328 10x3/uL (130-400); RBC Distribution Width 15.8 % (11.5-14.5); Red Blood Cell (RBC) Count 2.81 mill/uL (4.70-6.10); White Blood Cell (WBC) Count 9.4 10x3/uL (4.8-10.8)
[2022-12-02 08:24] LABS: Anion Gap 15 mmol/L (10-20); BUN (Urea Nitrogen) 10 mg/dL (8.4-25.7); Calc. Creatinine Clearance 55 mL/min (70-130); Calcium 8.3 mg/dL (7.8-10.44); Carbon Dioxide 21 mmol/L (23-31); Chloride 113 mmol/L (98-107); Estimated GFR 43; Glucose 120 mg/dL (83-110); Potassium 3.6 mmol/L (3.5-5.1); Sodium 145 mmol/L (136-145)
[2022-12-02] MEDS: Acetaminophen 500 MG TAB PO SCH ×3 (09:08→23:37)
[2022-12-02] MEDS: Pantoprazole 40 MG VIAL IVP SCH (09:08)
[2022-12-02] MEDS: NIFEdipine XL 30 MG TAB PO SCH (09:08)
[2022-12-02] MEDS: Labetalol HCl 100 MG/20 ML VIAL SLOW IVP PRN (12:19)
[2022-12-02] MEDS: Neostigmine 0.5 MG in Admixture Fee 1 EACH SC SCH ×3 (12:19→23:22)
[2022-12-02] MEDS: hydrALAZINE 20 MG/ML VIAL SLOW IVP PRN ×2 (17:43→23:22)
[2022-12-03] MEDS: Labetalol HCl 100 MG/20 ML VIAL SLOW IVP PRN (03:08)
[2022-12-03 04:17] LABS: #Eosinphils 0.4 thou/uL (0.0-0.7); #Lymphocytes 1.2 thou/uL (1.20-3.40); #Monocytes 0.7 thou/uL (0.11-0.59); #Neutrophils 6.3 thou/uL (1.40-6.50); %Basophils 0.3 % (0.0-1.0); %Eosinophils 4.7 % (0.0-10.0); %Lymphocytes 14.2 % (21.0-51.0); %Monocytes 8.1 % (0.0-10.0); %Neutrophils 72.6 % (42.0-75.0); Hemoglobin 9.4 g/dL (14.0-18.0); Mean Corpuscular HGB CONC 32.8 g/dL (32.0-36.0); Mean Corpuscular Hemoglobin 31.9 pg (27.0-31.0); Mean Corpuscular Volume 97.1 fl (78.0-98.0); Mean Platelet Volume 7.9 fL (7.4-10.4); Platelet Count 343 10x3/uL (130-400); RBC Distribution Width 15.4 % (11.5-14.5); Red Blood Cell (RBC) Count 2.94 mill/uL (4.70-6.10); White Blood Cell (WBC) Count 8.7 10x3/uL (4.8-10.8)
[2022-12-03 04:22] LABS: Anion Gap 16 mmol/L (10-20); BUN (Urea Nitrogen) 7 mg/dL (8.4-25.7); Calc. Creatinine Clearance 66 mL/min (70-130); Calcium 8.6 mg/dL (7.8-10.44); Carbon Dioxide 21 mmol/L (23-31); Chloride 114 mmol/L (98-107); Estimated GFR 53; Glucose 84 mg/dL (83-110); Potassium 3.3 mmol/L (3.5-5.1); Sodium 148 mmol/L (136-145)
[2022-12-03] MEDS: Lactated Ringer's 1,000 ML IV SCH ×3 (06:15→21:31)
[2022-12-03] MEDS: Neostigmine 0.5 MG in Admixture Fee 1 EACH SC SCH ×3 (06:16→17:07)
[2022-12-03] MEDS: Levothyroxine Sodium 50 MCG TAB PO SCH (06:16)
[2022-12-03] MEDS ORDERED: Potassium Chloride 20 MEQ TAB PO SCH (08:00)
[2022-12-03] MEDS ORDERED: Potassium Bicarbonate/Cit Ac 20 MEQ TAB PO SCH (08:15)
[2022-12-03 09:19] LABS: Magnesium 1.8 mg/dL (1.6-2.6); Phosphorus 2.6 mg/dL (2.3-4.7)
[2022-12-03] MEDS: Acetaminophen 500 MG TAB PO SCH ×3 (09:23→21:30)
[2022-12-03] MEDS: Pantoprazole 40 MG VIAL IVP SCH (09:24)
[2022-12-03] MEDS ORDERED: Magnesium 2 GM/50 ML(in water) 2 GM in Premix Bag 1 BAG IVPB SCH (09:30)
[2022-12-03] MEDS: NIFEdipine XL 30 MG TAB PO SCH (09:39)
[2022-12-04] MEDS: Neostigmine 0.5 MG in Admixture Fee 1 EACH SC SCH ×5 (00:18→23:45)
[2022-12-04] MEDS: Lactated Ringer's 1,000 ML IV SCH ×2 (03:21→04:30)
[2022-12-04 04:14] LABS: #Eosinphils 0.4 thou/uL (0.0-0.7); #Lymphocytes 1.3 thou/uL (1.20-3.40); #Monocytes 0.7 thou/uL (0.11-0.59); #Neutrophils 5.4 thou/uL (1.40-6.50); %Basophils 0.5 % (0.0-1.0); %Eosinophils 5.4 % (0.0-10.0); %Lymphocytes 16.8 % (21.0-51.0); %Monocytes 8.4 % (0.0-10.0); %Neutrophils 68.9 % (42.0-75.0); Hemoglobin 9.4 g/dL (14.0-18.0); Mean Corpuscular HGB CONC 33.4 g/dL (32.0-36.0); Mean Corpuscular Hemoglobin 32.4 pg (27.0-31.0); Mean Platelet Volume 7.9 fL (7.4-10.4); Platelet Count 336 10x3/uL (130-400); RBC Distribution Width 15.2 % (11.5-14.5); Red Blood Cell (RBC) Count 2.92 mill/uL (4.70-6.10); White Blood Cell (WBC) Count 7.8 10x3/uL (4.8-10.8)
[2022-12-04 04:30] LABS: Phosphorus 2.9 mg/dL (2.3-4.7)
[2022-12-04 04:36] LABS: Anion Gap 16 mmol/L (10-20); BUN (Urea Nitrogen) 8 mg/dL (8.4-25.7); Calc. Creatinine Clearance 70 mL/min (70-130); Calcium 8.3 mg/dL (7.8-10.44); Carbon Dioxide 22 mmol/L (23-31); Chloride 110 mmol/L (98-107); Estimated GFR 58; Glucose 78 mg/dL (83-110); Magnesium 1.9 mg/dL (1.6-2.6); Potassium 3.4 mmol/L (3.5-5.1); Sodium 145 mmol/L (136-145)
[2022-12-04] MEDS: Levothyroxine Sodium 50 MCG TAB PO SCH (05:20)
[2022-12-04] MEDS ORDERED: Potassium Chloride 20 MEQ TAB PO SCH (06:00)
[2022-12-04] MEDS ORDERED: Potassium Phosphate 30 MMOL in Sodium Chloride 0.9% 250 ML 250 ML IVPB SCH (07:15)
[2022-12-04] MEDS: NIFEdipine XL 30 MG TAB PO SCH (10:52)
[2022-12-04] MEDS: Naloxegol 12.5 MG TAB PO SCH (10:52)
[2022-12-04] MEDS: Acetaminophen 500 MG TAB PO SCH ×3 (10:53→21:05)
[2022-12-04] MEDS: Pantoprazole 40 MG VIAL IVP SCH (10:53)
[2022-12-04 11:19] LABS: Potassium 3.7 mmol/L (3.5-5.1)
[2022-12-04] MEDS: Ondansetron PF 4 MG/2 ML Vial IVP PRN (17:42)
[2022-12-05 06:15] LABS: #Eosinphils 0.3 thou/uL (0.0-0.7); #Lymphocytes 0.7 thou/uL (1.20-3.40); #Monocytes 0.6 thou/uL (0.11-0.59); #Neutrophils 6.6 thou/uL (1.40-6.50); %Basophils 0.2 % (0.0-1.0); %Eosinophils 3.6 % (0.0-10.0); %Lymphocytes 8.4 % (21.0-51.0); %Neutrophils 80.8 % (42.0-75.0); Hemoglobin 10.5 g/dL (14.0-18.0); Mean Corpuscular HGB CONC 33.2 g/dL (32.0-36.0); Mean Corpuscular Hemoglobin 32.3 pg (27.0-31.0); Mean Corpuscular Volume 97.4 fl (78.0-98.0); Mean Platelet Volume 7.9 fL (7.4-10.4); Platelet Count 351 10x3/uL (130-400); RBC Distribution Width 15.4 % (11.5-14.5); Red Blood Cell (RBC) Count 3.24 mill/uL (4.70-6.10); White Blood Cell (WBC) Count 8.1 10x3/uL (4.8-10.8)
[2022-12-05] MEDS: Neostigmine 0.5 MG in Admixture Fee 1 EACH SC SCH (06:25)
[2022-12-05] MEDS: Naloxegol 12.5 MG TAB PO SCH (06:25)
[2022-12-05] MEDS: Levothyroxine Sodium 50 MCG TAB PO SCH (06:25)
[2022-12-05 06:37] LABS: Anion Gap 16 mmol/L (10-20); BUN (Urea Nitrogen) 11 mg/dL (8.4-25.7); Calc. Creatinine Clearance 56 mL/min (70-130); Calcium 8.4 mg/dL (7.8-10.44); Carbon Dioxide 21 mmol/L (23-31); Chloride 110 mmol/L (98-107); Estimated GFR 45; Glucose 113 mg/dL (83-110); Potassium 3.8 mmol/L (3.5-5.1); Sodium 143 mmol/L (136-145)
[2022-12-05] MEDS: NIFEdipine XL 30 MG TAB PO SCH (09:23)
[2022-12-05] MEDS: Acetaminophen 500 MG TAB PO SCH ×3 (09:23→19:53)
[2022-12-05] MEDS: Famotidine 20 MG TAB PO SCH ×2 (09:23→19:53)
[2022-12-05] MEDS ORDERED: Sodium Chloride 0.9% 1,000 ML IV SCH (09:30)
[2022-12-05] MEDS: Ondansetron PF 4 MG/2 ML Vial IVP PRN (17:53)
[2022-12-06] MEDS: Levothyroxine Sodium 50 MCG TAB PO SCH (05:20)
[2022-12-06 08:00] LABS: Hemoglobin 10.6 g/dL (14.0-18.0); Mean Corpuscular HGB CONC 32.1 g/dL (32.0-36.0); Mean Corpuscular Hemoglobin 31.4 pg (27.0-31.0); Mean Corpuscular Volume 97.7 fl (78.0-98.0); Mean Platelet Volume 8.2 fL (7.4-10.4); Platelet Count 397 10x3/uL (130-400); Red Blood Cell (RBC) Count 3.37 mill/uL (4.70-6.10); White Blood Cell (WBC) Count 13.8 10x3/uL (4.8-10.8)
[2022-12-06 08:27] LABS: Band 53 % (5-11); Lymphocytes 5 % (21-51); MDiff Complete? YES; Monocytes 6 % (0-10); Neutrophil 36 % (42-75); Platelet Morphology Comment Appears Adequate; Polychromasia SLIGHT = 2-3 cells (100X) (0-2/hpf)
[2022-12-06] MEDS ORDERED: cloNIDine 0.2mg/24 Hour PATCH TD SCH (09:00)
[2022-12-06 09:04] LABS: Anion Gap 19 mmol/L (10-20); BUN (Urea Nitrogen) 21 mg/dL (8.4-25.7); Calc. Creatinine Clearance 29 mL/min (70-130); Calcium 8.8 mg/dL (7.8-10.44); Carbon Dioxide 24 mmol/L (23-31); Chloride 104 mmol/L (98-107); Estimated GFR 20; Glucose 107 mg/dL (83-110); Potassium 3.9 mmol/L (3.5-5.1); Sodium 143 mmol/L (136-145)
[2022-12-06] MEDS: Ondansetron PF 4 MG/2 ML Vial IVP PRN (09:05)
[2022-12-06] MEDS: NIFEdipine XL 30 MG TAB PO SCH (09:07)
[2022-12-06] MEDS: Famotidine 20 MG TAB PO SCH (09:07)
[2022-12-06] MEDS: Acetaminophen 500 MG TAB PO SCH ×3 (09:07→21:50)
[2022-12-06] MEDS ORDERED: Promethazine HCl 12.5 MG in Sodium Chloride 0.9% 50 ML IVPB PRN (10:58)
[2022-12-06] MEDS ORDERED: Sodium Chloride 0.9% 1,000 ML IV SCH ×2 (11:00→15:00)
[2022-12-06 13:02] LABS: Anion Gap 20 mmol/L (10-20); BUN (Urea Nitrogen) 25 mg/dL (8.4-25.7); Calc. Creatinine Clearance 24 mL/min (70-130); Calcium 8.6 mg/dL (7.8-10.44); Carbon Dioxide 20 mmol/L (23-31); Chloride 104 mmol/L (98-107); Estimated GFR 17; Glucose 110 mg/dL (83-110); Potassium 4.2 mmol/L (3.5-5.1); Sodium 140 mmol/L (136-145)
[2022-12-06 16:33] LABS: Lactic Acid 3.5 mmol/L (0.5-2.2)
[2022-12-06] MEDS: Albumin 25% 25 GM/100 ML BOT IVPB SCH (17:44)
[2022-12-06] MEDS: Sodium Chloride 0.9% 1,000 ML IV SCH (23:46)
[2022-12-07] MEDS: Albumin 25% 25 GM/100 ML BOT IVPB SCH ×3 (01:10→11:37)
[2022-12-07] MEDS: Sodium Chloride 0.9% 1,000 ML IV SCH ×4 (05:03→18:22)
[2022-12-07 05:22] LABS: Anion Gap 22 mmol/L (10-20); BUN (Urea Nitrogen) 37 mg/dL (8.4-25.7); Calc. Creatinine Clearance 16 mL/min (70-130); Calcium 8.4 mg/dL (7.8-10.44); Carbon Dioxide 27 mmol/L (23-31); Chloride 100 mmol/L (98-107); Estimated GFR 10; Glucose 91 mg/dL (83-110); Sodium 145 mmol/L (136-145)
[2022-12-07 05:34] LABS: Anisocytosis SLIGHT = 6-15 cells (100X) (0-5/hpf); Band 45 % (5-11); Hemoglobin 9.5 g/dL (14.0-18.0); Lymphocytes 15 % (21-51); MDiff Complete? YES; Mean Corpuscular HGB CONC 32.8 g/dL (32.0-36.0); Mean Corpuscular Hemoglobin 31.8 pg (27.0-31.0); Mean Platelet Volume 8.6 fL (7.4-10.4); Metamyelocyte 2 % (0-0); Monocytes 1 % (0-10); Neutrophil 37 % (42-75); Platelet Count 342 10x3/uL (130-400); Platelet Morphology Comment Appears Adequate; RBC Distribution Width 15.1 % (11.5-14.5); Red Blood Cell (RBC) Count 2.98 mill/uL (4.70-6.10); White Blood Cell (WBC) Count 8.1 10x3/uL (4.8-10.8)
[2022-12-07] MEDS: Levothyroxine Sodium 50 MCG TAB PO SCH (06:09)
[2022-12-07] MEDS: NIFEdipine XL 30 MG TAB PO SCH (08:20)
[2022-12-07] MEDS: Famotidine 20 MG TAB PO SCH (08:20)
[2022-12-07] MEDS: Acetaminophen 500 MG TAB PO SCH ×3 (08:20→21:56)
[2022-12-07] MEDS ORDERED: Piperacillin/Tazobactam 3.375 GM in Sodium Chloride 0.9% 100 ML IVPB SCH ×2 (14:45→20:00)
[2022-12-07] MEDS: Cefepime 0.5 GM, Admixture Fee 1 EACH in Sodium Chloride 0.9% 100 ML IVPB SCH (16:01)
[2022-12-07] MEDS ORDERED: VANCOMYCIN 1.75 GM/500 ML BAG 1.75 GM in Premix Bag 1 BAG IVPB SCH (20:00)
[2022-12-07] MEDS ORDERED: Vancomycin Dose by Levels Sliding Scale (Wt 71-99) FS SCH (20:00)
[2022-12-07] MEDS: cloNIDine 0.1mg/24 Hour PATCH TD SCH (21:33)
[2022-12-07] MEDS ORDERED: Piperacillin/Tazobactam 2.25 GM in Sodium Chloride 0.9% 100 ML IVPB SCH (22:00)
[2022-12-08] MEDS: Sodium Chloride 0.9% 1,000 ML IV SCH ×2 (03:56→05:05)
[2022-12-08] MEDS: Levothyroxine Sodium 50 MCG TAB PO SCH (05:05)
[2022-12-08 06:57] LABS: Band 30 % (5-11); Hemoglobin 9.1 g/dL (14.0-18.0); Hypochromia SLIGHT = 6-15 cells (100X) (0-5/hpf); Lymphocytes 5 % (21-51); MDiff Complete? YES; Mean Corpuscular HGB CONC 34.5 g/dL (32.0-36.0); Mean Corpuscular Hemoglobin 33.4 pg (27.0-31.0); Mean Corpuscular Volume 96.8 fl (78.0-98.0); Mean Platelet Volume 8.2 fL (7.4-10.4); Metamyelocyte 1 % (0-0); Monocytes 10 % (0-10); Neutrophil 54 % (42-75); Platelet Count 302 10x3/uL (130-400); Platelet Morphology Comment Appears Adequate; RBC Distribution Width 15.2 % (11.5-14.5); Red Blood Cell (RBC) Count 2.72 mill/uL (4.70-6.10); White Blood Cell (WBC) Count 18.1 10x3/uL (4.8-10.8)
[2022-12-08 07:20] LABS: Anion Gap 23 mmol/L (10-20); BUN (Urea Nitrogen) 53 mg/dL (8.4-25.7); Calc. Creatinine Clearance 12 mL/min (70-130); Calcium 8.2 mg/dL (7.8-10.44); Carbon Dioxide 24 mmol/L (23-31); Chloride 103 mmol/L (98-107); Estimated GFR 8; Glucose 89 mg/dL (83-110); Magnesium 1.7 mg/dL (1.6-2.6); Potassium 3.4 mmol/L (3.5-5.1); Sodium 147 mmol/L (136-145)
[2022-12-08] MEDS: Famotidine 20 MG TAB PO SCH (07:50)
[2022-12-08] MEDS: Acetaminophen 500 MG TAB PO SCH ×3 (07:50→21:14)
[2022-12-08] MEDS: NIFEdipine XL 30 MG TAB PO SCH (07:50)
[2022-12-08] MEDS ORDERED: Potassium Chloride 20 MEQ in Premix Bag 1 BAG IVPB SCH (08:30)
[2022-12-08] MEDS: Heparin 5,000 UNITS/ML VIAL SC SCH ×2 (08:57→22:19)
[2022-12-08 09:00] LABS: Lactic Acid 1.3 mmol/L (0.5-2.2)
[2022-12-08] MEDS ORDERED: cloNIDine 0.1mg/24 Hour PATCH TD SCH (09:00)
[2022-12-08 09:07] LABS: Magnesium 1.6 mg/dL (1.6-2.6); Phosphorus 4.1 mg/dL (2.3-4.7)
[2022-12-08] MEDS: Sodium Chloride 0.45% 1,000 ML IV SCH ×4 (09:58→22:32)
[2022-12-08 11:19] LABS: Bilirubin Negative (Negative); Blood, Urine 3+ (Negative); CAUTI Indications for Culture Dysuria,urgency,freq; Clarity Extra Turbid (Clear); Glucose, Urine (Dipstick) Normal (Negative); Ketone, Urine Negative (Negative); Leukocyte 25 Leu/uL (Negative); Nitrite Negative (Negative); Protein, Urine (Dipstick) 70 mg/dL (Neg-Trace); Specific Gravity, Urine 1.023 (1.002-1.036); Squamous Epithelial 0-3 HPF (0-3); Urobilinogen Normal mg/dL (Less than 2); WBC/HPF 0-3 HPF (0-3)
[2022-12-08 11:20] LABS: Bacteria/HPF 2+ HPF (None Seen)
[2022-12-08 11:21] LABS: Urine Culture Reflex No No
[2022-12-08] MEDS: Labetalol HCl 100 MG/20 ML VIAL SLOW IVP PRN (13:21)
[2022-12-08] MEDS ORDERED: hydrALAZINE 20 MG/ML VIAL SLOW IVP PRN (14:17)
[2022-12-08] MEDS ORDERED: Magnesium 2 GM/50 ML(in water) 2 GM in Premix Bag 1 BAG IVPB SCH (14:30)
[2022-12-08] MEDS: Cefepime 0.5 GM, Admixture Fee 1 EACH in Sodium Chloride 0.9% 100 ML IVPB SCH (17:12)
[2022-12-08 20:18] LABS: Vancomycin, Random 14.2 ug/mL (See Comment)
[2022-12-08] MEDS ORDERED: Vancomycin HCl 750 MG in Sodium Chloride 0.9% 250 ML 250 ML IVPB SCH (21:00)
[2022-12-09] MEDS: Levothyroxine Sodium 50 MCG TAB PO SCH (05:28)
[2022-12-09] MEDS: Sodium Chloride 0.45% 1,000 ML IV SCH ×3 (06:27→15:35)
[2022-12-09 06:28] LABS: Mean Corpuscular Hemoglobin 32.8 pg (27.0-31.0); Mean Corpuscular Volume 96.4 fl (78.0-98.0); Mean Platelet Volume 9.4 fL (7.4-10.4); Platelet Count 322 10x3/uL (130-400); RBC Distribution Width 15.2 % (11.5-14.5); Red Blood Cell (RBC) Count 2.76 mill/uL (4.70-6.10)
[2022-12-09 06:46] LABS: ALT (SGPT) 21 U/L (8-55); AST (SGOT) 20 U/L (5-34); Albumin 3.4 g/dL (3.4-4.8); Alkaline Phosphatase 122 U/L (40-110); Anion Gap 23 mmol/L (10-20); BUN (Urea Nitrogen) 61 mg/dL (8.4-25.7); Bilirubin, Total 0.7 mg/dL (0.2-1.2); Calc. Creatinine Clearance 14 mL/min (70-130); Calcium 8.8 mg/dL (7.8-10.44); Carbon Dioxide 25 mmol/L (23-31); Chloride 102 mmol/L (98-107); Estimated GFR 9; Globulin 3.2 g/dL (2.4-3.5); Glucose 93 mg/dL (83-110); Potassium 3.7 mmol/L (3.5-5.1); Protein, Total 6.6 g/dL (5.8-8.1); Sodium 146 mmol/L (136-145)
[2022-12-09] MEDS: NIFEdipine XL 30 MG TAB PO SCH (07:56)
[2022-12-09] MEDS: Famotidine 20 MG TAB PO SCH (07:56)
[2022-12-09] MEDS: Acetaminophen 500 MG TAB PO SCH ×3 (07:56→20:21)
[2022-12-09 08:05] LABS: Band 26 % (5-11); Eosinophils 2 % (0-10); Lymphocytes 7 % (21-51); MDiff Complete? YES; Monocytes 7 % (0-10); Neutrophil 58 % (42-75); Platelet Morphology Comment Appears Adequate; Polychromasia SLIGHT = 2-3 cells (100X) (0-2/hpf)
[2022-12-09] MEDS: Heparin 5,000 UNITS/ML VIAL SC SCH ×2 (08:32→20:20)
[2022-12-09] MEDS ORDERED: Amino Acids 4.25 %/Dextrose 5% 1,000 ML IV SCH (13:30)
[2022-12-09] MEDS: Cefepime 1 GM in Sodium Chloride 0.9% 100 ML IVPB SCH (15:59)
[2022-12-09] MEDS ORDERED: Metoprolol Tartrate 5 MG/5 ML VIAL IVP SCH (17:15)
[2022-12-09 20:12] LABS: Vancomycin, Random 16.7 ug/mL (See Comment)
[2022-12-09] MEDS ORDERED: Vancomycin HCl 500 MG in Sodium Chloride 0.9% 100 ML IV SCH (21:00)
[2022-12-10 03:55] LABS: Hemoglobin 9.3 g/dL (14.0-18.0); Mean Corpuscular HGB CONC 34.3 g/dL (32.0-36.0); Mean Corpuscular Hemoglobin 32.4 pg (27.0-31.0); Mean Corpuscular Volume 94.6 fl (78.0-98.0); Mean Platelet Volume 9.3 fL (7.4-10.4); Platelet Count 326 10x3/uL (130-400); RBC Distribution Width 15.3 % (11.5-14.5); Red Blood Cell (RBC) Count 2.88 mill/uL (4.70-6.10); White Blood Cell (WBC) Count 12.6 10x3/uL (4.8-10.8)
[2022-12-10 03:56] LABS: Band 23 % (5-11); Eosinophils 1 % (0-10); Hypochromia SLIGHT = 6-15 cells (100X) (0-5/hpf); Lymphocytes 6 % (21-51); MDiff Complete? YES; Monocytes 6 % (0-10); Neutrophil 64 % (42-75); Platelet Morphology Comment Appears Adequate
[2022-12-10 04:00] LABS: Anion Gap 19 mmol/L (10-20); BUN (Urea Nitrogen) 59 mg/dL (8.4-25.7); Calc. Creatinine Clearance 19 mL/min (70-130); Carbon Dioxide 30 mmol/L (23-31); Chloride 101 mmol/L (98-107); Sodium 147 mmol/L (136-145)
[2022-12-10 04:01] LABS: Calcium 9.1 mg/dL (7.8-10.44); Estimated GFR 14; Glucose 139 mg/dL (83-110)
[2022-12-10] MEDS: Levothyroxine Sodium 50 MCG TAB PO SCH (06:25)
[2022-12-10] MEDS ORDERED: Potassium Chloride 20 MEQ in Premix Bag 1 BAG IVPB SCH ×2 (06:45→09:00)
[2022-12-10] MEDS: Heparin 5,000 UNITS/ML VIAL SC SCH ×2 (09:47→20:42)
[2022-12-10] MEDS ORDERED: Tamsulosin HCl 0.4 MG CAP PO SCH (10:15)
[2022-12-10 10:33] LABS: Magnesium 2.2 mg/dL (1.6-2.6); Phosphorus 2.7 mg/dL (2.3-4.7)
[2022-12-10] MEDS: Acetaminophen 500 MG TAB PO SCH ×4 (11:30→20:42)
[2022-12-10] MEDS: Famotidine 20 MG TAB PO SCH (11:31)
[2022-12-10] MEDS: NIFEdipine XL 30 MG TAB PO SCH (11:31)
[2022-12-10] MEDS ORDERED: Metoprolol Tartrate 5 MG/5 ML VIAL IVP SCH (14:22)
[2022-12-10] MEDS ORDERED: Metoprolol Tartrate 25 MG TAB PO SCH (14:24)
[2022-12-10] MEDS: Cefepime 1 GM in Sodium Chloride 0.9% 100 ML IVPB SCH (15:49)
[2022-12-10 20:39] LABS: Vancomycin, Random 15.2 ug/mL (See Comment)
[2022-12-10] MEDS: Metoprolol Tartrate 25 MG TAB PO SCH (20:43)
[2022-12-10] MEDS ORDERED: Vancomycin HCl 500 MG in Sodium Chloride 0.9% 100 ML IV SCH (21:30)
[2022-12-11 04:41] LABS: Phosphorus 2.2 mg/dL (2.3-4.7)
[2022-12-11 04:42] LABS: Anion Gap 17 mmol/L (10-20); BUN (Urea Nitrogen) 61 mg/dL (8.4-25.7); Calc. Creatinine Clearance 25 mL/min (70-130); Calcium 9.3 mg/dL (7.8-10.44); Carbon Dioxide 27 mmol/L (23-31); Chloride 105 mmol/L (98-107); Estimated GFR 20; Glucose 120 mg/dL (83-110); Magnesium 2.2 mg/dL (1.6-2.6); Potassium 3.1 mmol/L (3.5-5.1); Sodium 146 mmol/L (136-145)
[2022-12-11 05:02] LABS: Anisocytosis SLIGHT = 6-15 cells (100X) (0-5/hpf); Band 15 % (5-11); Eosinophils 1 % (0-10); Lymphocytes 6 % (21-51); MDiff Complete? YES; Mean Corpuscular Hemoglobin 32.5 pg (27.0-31.0); Mean Corpuscular Volume 95.6 fl (78.0-98.0); Mean Platelet Volume 9.4 fL (7.4-10.4); Monocytes 11 % (0-10); Neutrophil 67 % (42-75); Platelet Count 348 10x3/uL (130-400); Platelet Morphology Comment Appears Adequate; RBC Distribution Width 15.4 % (11.5-14.5); Red Blood Cell (RBC) Count 3.08 mill/uL (4.70-6.10); White Blood Cell (WBC) Count 16.7 10x3/uL (4.8-10.8)
[2022-12-11] MEDS: Levothyroxine Sodium 50 MCG TAB PO SCH (05:37)
[2022-12-11 09:25] LABS: CKMB 1.5 ng/mL (0-6.6)
[2022-12-11] MEDS ORDERED: Potassium Chloride 20 MEQ TAB PO SCH (10:00)
[2022-12-11] MEDS: NIFEdipine XL 30 MG TAB PO SCH (10:30)
[2022-12-11] MEDS: Metoprolol Tartrate 25 MG TAB PO SCH ×2 (10:30→20:56)
[2022-12-11] MEDS: Dutasteride 0.5 MG CAP PO SCH (10:30)
[2022-12-11] MEDS: Heparin 5,000 UNITS/ML VIAL SC SCH ×2 (10:31→20:56)
[2022-12-11] MEDS: Tamsulosin HCl 0.4 MG CAP PO SCH (10:31)
[2022-12-11] MEDS: Acetaminophen 500 MG TAB PO SCH ×3 (10:31→20:56)
[2022-12-11] MEDS: Famotidine 20 MG TAB PO SCH (10:31)
[2022-12-11] MEDS: Potassium Phosphate 30 MMOL in Sodium Chloride 0.9% 250 ML 250 ML IVPB SCH (10:35)
[2022-12-11] MEDS: Cefepime 1 GM in Sodium Chloride 0.9% 100 ML IVPB SCH (16:15)
[2022-12-11 20:45] LABS: Vancomycin, Random 15.1 ug/mL (See Comment)
[2022-12-11] MEDS: Vancomycin HCl 750 MG in Sodium Chloride 0.9% 250 ML 250 ML IVPB SCH ×2 (21:50→21:55)
[2022-12-12] MEDS: Levothyroxine Sodium 50 MCG TAB PO SCH (05:22)
[2022-12-12 07:42] LABS: Hemoglobin 9.6 g/dL (14.0-18.0); Mean Corpuscular HGB CONC 31.5 g/dL (32.0-36.0); Mean Corpuscular Hemoglobin 30.8 pg (27.0-31.0); Mean Corpuscular Volume 97.7 fl (78.0-98.0); Mean Platelet Volume 10.1 fL (7.4-10.4); Platelet Count 297 10x3/uL (130-400); RBC Distribution Width 15.6 % (11.5-14.5); Red Blood Cell (RBC) Count 3.13 mill/uL (4.70-6.10); White Blood Cell (WBC) Count 13.4 10x3/uL (4.8-10.8)
[2022-12-12 07:50] LABS: Anion Gap 19 mmol/L (10-20); BUN (Urea Nitrogen) 65 mg/dL (8.4-25.7); Calc. Creatinine Clearance 25 mL/min (70-130); Carbon Dioxide 24 mmol/L (23-31); Chloride 105 mmol/L (98-107); Estimated GFR 19; Glucose 121 mg/dL (83-110); Potassium 3.4 mmol/L (3.5-5.1); Sodium 145 mmol/L (136-145)
[2022-12-12 08:06] LABS: Phosphorus 3.8 mg/dL (2.3-4.7)
[2022-12-12 08:31] LABS: Band 9 % (5-11); Eosinophils 1 % (0-10); Lymphocytes 11 % (21-51); MDiff Complete? YES; Monocytes 9 % (0-10); Neutrophil 69 % (42-75); Platelet Morphology Comment Appears Adequate; Polychromasia SLIGHT = 2-3 cells (100X) (0-2/hpf); Reactive Lymphocytes 1 % (0-10)
[2022-12-12] MEDS: Dutasteride 0.5 MG CAP PO SCH ×2 (10:21→12:42)
[2022-12-12] MEDS: Acetaminophen 500 MG TAB PO SCH ×6 (10:21→22:38)
[2022-12-12] MEDS: Heparin 5,000 UNITS/ML VIAL SC SCH ×3 (10:21→22:38)
[2022-12-12] MEDS: Tamsulosin HCl 0.4 MG CAP PO SCH ×2 (10:21→12:44)
[2022-12-12] MEDS: NIFEdipine XL 30 MG TAB PO SCH ×2 (10:21→12:44)
[2022-12-12] MEDS: Famotidine 20 MG TAB PO SCH ×2 (10:21→12:44)
[2022-12-12] MEDS: Metoprolol Tartrate 25 MG TAB PO SCH ×3 (10:21→22:38)
[2022-12-12] MEDS: Potassium Chloride 20 MEQ in Premix Bag 1 BAG IVPB SCH ×2 (10:22→12:40)
[2022-12-12] MEDS ORDERED: Potassium Chloride 20 MEQ TAB PO SCH (13:00)
[2022-12-12] MEDS: Potassium Phosphate 30 MMOL in Sodium Chloride 0.9% 250 ML 250 ML IVPB SCH (14:28)
[2022-12-12] MEDS: Cefepime 1 GM in Sodium Chloride 0.9% 100 ML IVPB SCH (15:39)
[2022-12-12 21:47] LABS: Vancomycin, Random 10.5 ug/mL (See Comment)
[2022-12-12] MEDS ORDERED: Vancomycin HCl 750 MG in Sodium Chloride 0.9% 250 ML 250 ML IVPB SCH (22:00)
[2022-12-13] MEDS: Levothyroxine Sodium 50 MCG TAB PO SCH (06:38)
[2022-12-13 06:59] LABS: #Basophils 0.1 thou/uL (0.0-0.2); #Eosinphils 0.4 thou/uL (0.0-0.7); #Lymphocytes 1.6 thou/uL (1.20-3.40); #Monocytes 0.7 thou/uL (0.11-0.59); #Neutrophils 9.2 thou/uL (1.40-6.50); %Basophils 0.5 % (0.0-1.0); %Eosinophils 3.4 % (0.0-10.0); %Lymphocytes 13.6 % (21.0-51.0); %Monocytes 5.8 % (0.0-10.0); %Neutrophils 76.7 % (42.0-75.0); Hemoglobin 8.7 g/dL (14.0-18.0); Mean Corpuscular Hemoglobin 29.9 pg (27.0-31.0); Mean Corpuscular Volume 96.5 fl (78.0-98.0); Mean Platelet Volume 9.1 fL (7.4-10.4); Platelet Count 332 10x3/uL (130-400); RBC Distribution Width 15.2 % (11.5-14.5)
[2022-12-13 07:22] LABS: Anion Gap 17 mmol/L (10-20); BUN (Urea Nitrogen) 59 mg/dL (8.4-25.7); Calc. Creatinine Clearance 28 mL/min (70-130); Calcium 8.7 mg/dL (7.8-10.44); Carbon Dioxide 27 mmol/L (23-31); Chloride 103 mmol/L (98-107); Estimated GFR 22; Glucose 109 mg/dL (83-110); Potassium 3.4 mmol/L (3.5-5.1); Sodium 144 mmol/L (136-145)
[2022-12-13] MEDS: Heparin 5,000 UNITS/ML VIAL SC SCH ×2 (08:09→20:12)
[2022-12-13] MEDS: Acetaminophen 500 MG TAB PO SCH ×3 (08:09→20:12)
[2022-12-13] MEDS: Dutasteride 0.5 MG CAP PO SCH (08:09)
[2022-12-13] MEDS: Famotidine 20 MG TAB PO SCH (08:09)
[2022-12-13] MEDS: Tamsulosin HCl 0.4 MG CAP PO SCH (08:10)
[2022-12-13] MEDS: NIFEdipine XL 30 MG TAB PO SCH (08:10)
[2022-12-13] MEDS: Metoprolol Tartrate 25 MG TAB PO SCH ×4 (08:10→20:12)
[2022-12-13] MEDS ORDERED: Potassium Chloride 20 MEQ TAB PO SCH (08:30)
[2022-12-13] MEDS: Cefepime 1 GM in Sodium Chloride 0.9% 100 ML IVPB SCH (15:02)
[2022-12-13 20:05] LABS: Vancomycin, Random 7.7 ug/mL (See Comment)
[2022-12-13] MEDS ORDERED: Vancomycin 1 GM in Premix Bag 1 BAG IVPB SCH (21:00)
[2022-12-14] MEDS: Levothyroxine Sodium 50 MCG TAB PO SCH (05:30)
[2022-12-14 12:56] LABS: Anion Gap 19 mmol/L (10-20); BUN (Urea Nitrogen) 52 mg/dL (8.4-25.7); Calc. Creatinine Clearance 31 mL/min (70-130); Calcium 9.1 mg/dL (7.8-10.44); Carbon Dioxide 24 mmol/L (23-31); Chloride 105 mmol/L (98-107); Estimated GFR 25; Glucose 101 mg/dL (83-110); Potassium 3.9 mmol/L (3.5-5.1); Sodium 144 mmol/L (136-145)
[2022-12-14] MEDS: Dutasteride 0.5 MG CAP PO SCH (15:49)
[2022-12-14] MEDS: Acetaminophen 500 MG TAB PO SCH ×2 (15:49→23:25)
[2022-12-14] MEDS: Famotidine 20 MG TAB PO SCH (15:49)
[2022-12-14] MEDS: Metoprolol Tartrate 25 MG TAB PO SCH ×2 (15:50→23:25)
[2022-12-14] MEDS: Heparin 5,000 UNITS/ML VIAL SC SCH ×2 (15:50→23:25)
[2022-12-14] MEDS: NIFEdipine XL 30 MG TAB PO SCH (15:50)
[2022-12-14] MEDS: Tamsulosin HCl 0.4 MG CAP PO SCH (15:50)
[2022-12-14] MEDS: Cefepime 1 GM in Sodium Chloride 0.9% 100 ML IVPB SCH (16:21)
[2022-12-14 20:35] LABS: Vancomycin, Random 14.3 ug/mL (See Comment)
[2022-12-14] MEDS ORDERED: Vancomycin 1 GM in Premix Bag 1 BAG IVPB SCH (21:00)
[2022-12-14] MEDS: cloNIDine 0.1mg/24 Hour PATCH TD SCH (23:21)
[2022-12-15] MEDS: cloNIDine 0.1mg/24 Hour PATCH TD SCH (01:12)
[2022-12-15] MEDS: Levothyroxine Sodium 50 MCG TAB PO SCH ×2 (05:31→05:35)
[2022-12-15 06:46] LABS: Hemoglobin 8.8 g/dL (14.0-18.0); Mean Corpuscular HGB CONC 30.3 g/dL (32.0-36.0); Mean Corpuscular Hemoglobin 29.2 pg (27.0-31.0); Mean Corpuscular Volume 96.5 fl (78.0-98.0); Mean Platelet Volume 8.9 fL (7.4-10.4); Platelet Count 354 10x3/uL (130-400); RBC Distribution Width 15.2 % (11.5-14.5); White Blood Cell (WBC) Count 11.3 10x3/uL (4.8-10.8)
[2022-12-15 07:04] LABS: Anion Gap 16 mmol/L (10-20); BUN (Urea Nitrogen) 52 mg/dL (8.4-25.7); Calc. Creatinine Clearance 33 mL/min (70-130); Calcium 8.9 mg/dL (7.8-10.44); Carbon Dioxide 28 mmol/L (23-31); Chloride 104 mmol/L (98-107); Estimated GFR 27; Glucose 98 mg/dL (83-110); Sodium 144 mmol/L (136-145)
[2022-12-15] MEDS: Dutasteride 0.5 MG CAP PO SCH (08:19)
[2022-12-15] MEDS: Famotidine 20 MG TAB PO SCH (08:19)
[2022-12-15] MEDS: Heparin 5,000 UNITS/ML VIAL SC SCH ×2 (08:19→21:45)
[2022-12-15] MEDS: Metoprolol Tartrate 25 MG TAB PO SCH ×2 (08:20→21:45)
[2022-12-15] MEDS: NIFEdipine XL 30 MG TAB PO SCH (08:20)
[2022-12-15] MEDS: Tamsulosin HCl 0.4 MG CAP PO SCH (08:20)
[2022-12-15] MEDS: Acetaminophen 500 MG TAB PO SCH ×3 (08:23→21:45)
[2022-12-15] MEDS: Cefepime 1 GM in Sodium Chloride 0.9% 100 ML IVPB SCH (15:02)
[2022-12-15] MEDS: Vancomycin 1 GM in Premix Bag 1 BAG IVPB SCH (23:31)
[2022-12-16] MEDS: Levothyroxine Sodium 50 MCG TAB PO SCH (05:57)
[2022-12-16] MEDS: NIFEdipine XL 30 MG TAB PO SCH (08:08)
[2022-12-16] MEDS: Famotidine 20 MG TAB PO SCH (08:08)
[2022-12-16] MEDS: Acetaminophen 500 MG TAB PO SCH ×3 (08:08→20:57)
[2022-12-16] MEDS: Heparin 5,000 UNITS/ML VIAL SC SCH ×2 (08:08→20:57)
[2022-12-16] MEDS: Dutasteride 0.5 MG CAP PO SCH (08:08)
[2022-12-16] MEDS: Metoprolol Tartrate 25 MG TAB PO SCH ×2 (08:09→20:57)
[2022-12-16] MEDS: Tamsulosin HCl 0.4 MG CAP PO SCH (08:09)
[2022-12-16] MEDS: Cefepime 1 GM in Sodium Chloride 0.9% 100 ML IVPB SCH (15:24)
[2022-12-16 23:51] LABS: Vancomycin, Trough 16.8 ug/mL
[2022-12-17] MEDS: Vancomycin 1 GM in Premix Bag 1 BAG IVPB SCH (00:11)
[2022-12-17] MEDS: Levothyroxine Sodium 50 MCG TAB PO SCH (06:32)
[2022-12-17] MEDS: Acetaminophen 500 MG TAB PO SCH ×3 (09:19→22:03)
[2022-12-17] MEDS: Tamsulosin HCl 0.4 MG CAP PO SCH (09:20)
[2022-12-17] MEDS: Metoprolol Tartrate 25 MG TAB PO SCH ×2 (09:20→22:03)
[2022-12-17] MEDS: NIFEdipine XL 30 MG TAB PO SCH (09:20)
[2022-12-17] MEDS: Famotidine 20 MG TAB PO SCH (09:20)
[2022-12-17] MEDS: Heparin 5,000 UNITS/ML VIAL SC SCH ×2 (09:20→22:03)
[2022-12-17] MEDS: Dutasteride 0.5 MG CAP PO SCH (09:20)
[2022-12-18 05:36] LABS: Hemoglobin 8.7 g/dL (14.0-18.0); Mean Corpuscular HGB CONC 29.6 g/dL (32.0-36.0); Mean Corpuscular Hemoglobin 28.6 pg (27.0-31.0); Mean Corpuscular Volume 96.7 fl (78.0-98.0); Mean Platelet Volume 11.2 fL (7.4-10.4); Platelet Count 317 10x3/uL (130-400); Red Blood Cell (RBC) Count 3.04 mill/uL (4.70-6.10); White Blood Cell (WBC) Count 10.9 10x3/uL (4.8-10.8)
[2022-12-18 05:57] LABS: Anion Gap 14 mmol/L (10-20); BUN (Urea Nitrogen) 48 mg/dL (8.4-25.7); Calc. Creatinine Clearance 28 mL/min (70-130); Calcium 9.6 mg/dL (7.8-10.44); Carbon Dioxide 27 mmol/L (23-31); Chloride 104 mmol/L (98-107); Estimated GFR 24; Glucose 108 mg/dL (83-110); Potassium 3.9 mmol/L (3.5-5.1); Sodium 141 mmol/L (136-145)
[2022-12-18] MEDS: Levothyroxine Sodium 50 MCG TAB PO SCH (06:04)
[2022-12-18] MEDS: Acetaminophen 500 MG TAB PO SCH ×3 (10:16→20:06)
[2022-12-18] MEDS: Docusate 100 MG CAP PO SCH ×2 (10:16→20:06)
[2022-12-18] MEDS: Dutasteride 0.5 MG CAP PO SCH (10:16)
[2022-12-18] MEDS: NIFEdipine XL 30 MG TAB PO SCH (10:17)
[2022-12-18] MEDS: Heparin 5,000 UNITS/ML VIAL SC SCH ×2 (10:17→20:06)
[2022-12-18] MEDS: Tamsulosin HCl 0.4 MG CAP PO SCH (10:17)
[2022-12-18] MEDS: Metoprolol Tartrate 25 MG TAB PO SCH ×2 (10:17→20:06)
[2022-12-19] MEDS: Levothyroxine Sodium 50 MCG TAB PO SCH (05:31)
[2022-12-19 06:01] LABS: #Basophils 0.1 thou/uL (0.0-0.2); #Eosinphils 0.2 thou/uL (0.0-0.7); #Monocytes 0.7 thou/uL (0.11-0.59); #Neutrophils 6.6 thou/uL (1.40-6.50); %Eosinophils 2.2 % (0.0-10.0); %Lymphocytes 18.5 % (21.0-51.0); %Monocytes 7.9 % (0.0-10.0); %Neutrophils 69.7 % (42.0-75.0); Hemoglobin 9.5 g/dL (14.0-18.0); Mean Corpuscular Hemoglobin 29.2 pg (27.0-31.0); Mean Corpuscular Volume 97.5 fl (78.0-98.0); Mean Platelet Volume 11.3 fL (7.4-10.4); Platelet Count 345 10x3/uL (130-400); Red Blood Cell (RBC) Count 3.25 mill/uL (4.70-6.10); White Blood Cell (WBC) Count 9.4 10x3/uL (4.8-10.8)
[2022-12-19 06:26] LABS: Anion Gap 17 mmol/L (10-20); BUN (Urea Nitrogen) 51 mg/dL (8.4-25.7); Calc. Creatinine Clearance 26 mL/min (70-130); Calcium 9.7 mg/dL (7.8-10.44); Carbon Dioxide 25 mmol/L (23-31); Chloride 105 mmol/L (98-107); Estimated GFR 22; Glucose 93 mg/dL (83-110); Sodium 143 mmol/L (136-145)
[2022-12-19] MEDS: Docusate 100 MG CAP PO SCH (09:35)
[2022-12-19] MEDS: Acetaminophen 500 MG TAB PO SCH ×3 (09:35→20:58)
[2022-12-19] MEDS: Sodium Chloride 0.9% 1,000 ML IV SCH ×2 (09:36→23:28)
[2022-12-19] MEDS: Metoprolol Tartrate 25 MG TAB PO SCH ×2 (09:36→20:58)
[2022-12-19] MEDS: Dutasteride 0.5 MG CAP PO SCH (09:36)
[2022-12-19] MEDS: NIFEdipine XL 30 MG TAB PO SCH (09:36)
[2022-12-19] MEDS: Tamsulosin HCl 0.4 MG CAP PO SCH (09:36)
[2022-12-19] MEDS: Heparin 5,000 UNITS/ML VIAL SC SCH ×2 (09:36→20:58)
[2022-12-20 05:21] LABS: #Basophils 0.1 thou/uL (0.0-0.2); #Eosinphils 0.2 thou/uL (0.0-0.7); #Monocytes 0.8 thou/uL (0.11-0.59); #Neutrophils 6.8 thou/uL (1.40-6.50); %Basophils 0.7 % (0.0-1.0); %Eosinophils 2.3 % (0.0-10.0); %Lymphocytes 17.6 % (21.0-51.0); %Monocytes 8.6 % (0.0-10.0); %Neutrophils 70.2 % (42.0-75.0); Hemoglobin 9.3 g/dL (14.0-18.0); Mean Corpuscular HGB CONC 30.5 g/dL (32.0-36.0); Mean Corpuscular Hemoglobin 29.2 pg (27.0-31.0); Mean Corpuscular Volume 95.6 fl (78.0-98.0); Mean Platelet Volume 10.8 fL (7.4-10.4); Platelet Count 377 10x3/uL (130-400); RBC Distribution Width 15.7 % (11.5-14.5); Red Blood Cell (RBC) Count 3.19 mill/uL (4.70-6.10); White Blood Cell (WBC) Count 9.7 10x3/uL (4.8-10.8)
[2022-12-20] MEDS: Levothyroxine Sodium 50 MCG TAB PO SCH (05:21)
[2022-12-20 05:42] LABS: Phosphorus 5.5 mg/dL (2.3-4.7)
[2022-12-20 05:43] LABS: Anion Gap 14 mmol/L (10-20); BUN (Urea Nitrogen) 64 mg/dL (8.4-25.7); Calc. Creatinine Clearance 18 mL/min (70-130); Calcium 9.3 mg/dL (7.8-10.44); Carbon Dioxide 26 mmol/L (23-31); Chloride 101 mmol/L (98-107); Estimated GFR 15; Glucose 105 mg/dL (83-110); Magnesium 1.8 mg/dL (1.6-2.6); Potassium 3.9 mmol/L (3.5-5.1); Sodium 137 mmol/L (136-145)
[2022-12-20] MEDS: Metoprolol Tartrate 25 MG TAB PO SCH ×2 (08:41→21:16)
[2022-12-20] MEDS: NIFEdipine XL 30 MG TAB PO SCH (08:41)
[2022-12-20] MEDS: Tamsulosin HCl 0.4 MG CAP PO SCH (08:41)
[2022-12-20] MEDS: Dutasteride 0.5 MG CAP PO SCH (08:41)
[2022-12-20] MEDS: Heparin 5,000 UNITS/ML VIAL SC SCH ×2 (08:41→21:16)
[2022-12-20] MEDS: Acetaminophen 500 MG TAB PO SCH ×3 (08:42→21:15)
[2022-12-20] MEDS: Sodium Chloride 0.9% 1,000 ML IV SCH ×2 (08:49→14:06)
[2022-12-20] MEDS ORDERED: NIFEdipine XL 30 MG TAB PO PRN (09:17)
[2022-12-21] MEDS: Sodium Chloride 0.9% 1,000 ML IV SCH ×3 (05:27→20:59)
[2022-12-21] MEDS: Levothyroxine Sodium 50 MCG TAB PO SCH (05:27)
[2022-12-21] MEDS: Dutasteride 0.5 MG CAP PO SCH (10:28)
[2022-12-21] MEDS: Acetaminophen 500 MG TAB PO SCH ×3 (10:28→20:59)
[2022-12-21] MEDS: Heparin 5,000 UNITS/ML VIAL SC SCH ×2 (10:28→20:59)
[2022-12-21] MEDS: Tamsulosin HCl 0.4 MG CAP PO SCH (10:29)
[2022-12-21] MEDS: Metoprolol Tartrate 25 MG TAB PO SCH ×2 (10:29→20:59)
[2022-12-21] MEDS: cloNIDine 0.1mg/24 Hour PATCH TD SCH (23:14)
[2022-12-22] MEDS: Sodium Chloride 0.9% 1,000 ML IV SCH ×2 (02:05→02:10)
[2022-12-22 05:09] LABS: ALT (SGPT) 20 U/L (8-55); AST (SGOT) 22 U/L (5-34); Albumin 3.3 g/dL (3.4-4.8); Alkaline Phosphatase 69 U/L (40-110); Anion Gap 15 mmol/L (10-20); BUN (Urea Nitrogen) 53 mg/dL (8.4-25.7); Bilirubin, Total 0.4 mg/dL (0.2-1.2); Calc. Creatinine Clearance 24 mL/min (70-130); Calcium 8.9 mg/dL (7.8-10.44); Carbon Dioxide 21 mmol/L (23-31); Chloride 110 mmol/L (98-107); Estimated GFR 20; Globulin 3.9 g/dL (2.4-3.5); Glucose 88 mg/dL (83-110); Potassium 4.3 mmol/L (3.5-5.1); Protein, Total 7.2 g/dL (5.8-8.1); Sodium 142 mmol/L (136-145)
[2022-12-22] MEDS: Levothyroxine Sodium 50 MCG TAB PO SCH (05:37)
[2022-12-22] MEDS: Dutasteride 0.5 MG CAP PO SCH (10:49)
[2022-12-22] MEDS: Metoprolol Tartrate 25 MG TAB PO SCH ×2 (10:50→21:53)
[2022-12-22] MEDS: Acetaminophen 500 MG TAB PO SCH ×3 (10:50→21:52)
[2022-12-22] MEDS: Tamsulosin HCl 0.4 MG CAP PO SCH (10:50)
[2022-12-22] MEDS: Heparin 5,000 UNITS/ML VIAL SC SCH ×2 (11:35→21:52)
[2022-12-23] MEDS: Sodium Chloride 0.9% 1,000 ML IV SCH ×2 (01:00→17:24)
[2022-12-23] MEDS: Levothyroxine Sodium 50 MCG TAB PO SCH (05:52)
[2022-12-23] MEDS: Dutasteride 0.5 MG CAP PO SCH (09:21)
[2022-12-23] MEDS: Acetaminophen 500 MG TAB PO SCH ×3 (09:21→20:23)
[2022-12-23] MEDS: Tamsulosin HCl 0.4 MG CAP PO SCH (09:21)
[2022-12-23] MEDS: Heparin 5,000 UNITS/ML VIAL SC SCH ×2 (09:21→20:23)
[2022-12-23] MEDS: Metoprolol Tartrate 25 MG TAB PO SCH ×2 (09:21→20:23)
[2022-12-24] MEDS: Levothyroxine Sodium 50 MCG TAB PO SCH (06:49)
[2022-12-24 09:38] LABS: Anion Gap 13 mmol/L (10-20); BUN (Urea Nitrogen) 50 mg/dL (8.4-25.7); Calc. Creatinine Clearance 24 mL/min (70-130); Calcium 9.3 mg/dL (7.8-10.44); Carbon Dioxide 20 mmol/L (23-31); Chloride 112 mmol/L (98-107); Estimated GFR 20; Glucose 98 mg/dL (83-110); Potassium 4.8 mmol/L (3.5-5.1); Sodium 140 mmol/L (136-145)
[2022-12-24] MEDS: Metoprolol Tartrate 25 MG TAB PO SCH ×2 (09:39→20:27)
[2022-12-24] MEDS: Acetaminophen 500 MG TAB PO SCH ×3 (09:39→20:27)
[2022-12-24] MEDS: Tamsulosin HCl 0.4 MG CAP PO SCH (09:39)
[2022-12-24] MEDS: Heparin 5,000 UNITS/ML VIAL SC SCH ×2 (09:39→20:27)
[2022-12-24] MEDS: Dutasteride 0.5 MG CAP PO SCH (09:39)
[2022-12-24 13:01] VITALS: BMI 25.3
[2022-12-24] MEDS: Sodium Chloride 0.9% 1,000 ML IV SCH (13:45)
[2022-12-25] MEDS: Levothyroxine Sodium 50 MCG TAB PO SCH (06:27)
[2022-12-25] MEDS: Acetaminophen 500 MG TAB PO SCH ×2 (09:45→16:24)
[2022-12-25] MEDS: Tamsulosin HCl 0.4 MG CAP PO SCH (09:46)
[2022-12-25] MEDS: Heparin 5,000 UNITS/ML VIAL SC SCH (09:46)
[2022-12-25] MEDS: Metoprolol Tartrate 25 MG TAB PO SCH (09:46)
[2022-12-25] MEDS: Dutasteride 0.5 MG CAP PO SCH (09:46)
[2022-12-25] MEDS: Sodium Chloride 0.9% 1,000 ML IV SCH (13:31)
[2022-12-25 15:57] VITALS: BP 116/77; TEMP 97.9
== END 2022-12-25 20:10 | disposition home health service (06) | DRG 329 ==
LOC: ERS 20:04 → 2SW 22:06 → OBSVTOIN 11-20 04:50 → CCU 11-20 05:57 → T4-B 11-22 16:11 → CCU 11-23 06:02 → IMCU/EMU 11-30 02:44 → SURG A 12-04 13:06 → CCU 12-08 10:44 → IMCU/EMU 12-08 16:34 → SJJU 12-12 14:01
PROVIDERS: ADMIT Internal Medicine; ATTEND Family Medicine
PROC: 30233N1 Transfusion of Nonautologous Red Blood Cells into Peripheral Vein, Percutaneous Approach (ICD-10-PCS; 2022-11-20)
PROC: B548ZZA Ultrasonography of Superior Vena Cava, Guidance (ICD-10-PCS; 2022-11-20)
PROC: 02HV33Z Insertion of Infusion Device into Superior Vena Cava, Percutaneous Approach (ICD-10-PCS; 2022-11-20)
PROC: 0DJ08ZZ Inspection of Upper Intestinal Tract, Via Natural or Artificial Opening Endoscopic (ICD-10-PCS; 2022-11-20)
PROC: 0DJD8ZZ Inspection of Lower Intestinal Tract, Via Natural or Artificial Opening Endoscopic (ICD-10-PCS; 2022-11-20)
PROC: 5A1945Z Respiratory Ventilation, 24-96 Consecutive Hours (ICD-10-PCS; 2022-11-23)
PROC: 0BH17EZ Insertion of Endotracheal Airway into Trachea, Via Natural or Artificial Opening (ICD-10-PCS; 2022-11-23)
PROC: 02HV33Z Insertion of Infusion Device into Superior Vena Cava, Percutaneous Approach (ICD-10-PCS; 2022-11-23)
PROC: B548ZZA Ultrasonography of Superior Vena Cava, Guidance (ICD-10-PCS; 2022-11-23)
PROC: 4A033R1 Measurement of Arterial Saturation, Peripheral, Percutaneous Approach (ICD-10-PCS; 2022-11-23)
PROC: 3E043XZ Introduction of Vasopressor into Central Vein, Percutaneous Approach (ICD-10-PCS; 2022-11-23)
PROC: 0D9770Z Drainage of Stomach, Pylorus with Drainage Device, Via Natural or Artificial Opening (ICD-10-PCS; 2022-11-23)
PROC: 0D1B0Z4 Bypass Ileum to Cutaneous, Open Approach (ICD-10-PCS; principal; 2022-11-27)
PROC: 0DNW0ZZ Release Peritoneum, Open Approach (ICD-10-PCS; 2022-11-27)
PROC: 0DBF0ZZ Excision of Right Large Intestine, Open Approach (ICD-10-PCS; 2022-11-27)
PROC: 30233R1 Transfusion of Nonautologous Platelets into Peripheral Vein, Percutaneous Approach (ICD-10-PCS; 2022-11-27)
DX: K57.31 Diverticulosis of large intestine without perforation or abscess with bleeding (principal); G93.41 Metabolic encephalopathy; I21.A1 Myocardial infarction type 2; J96.01 Acute respiratory failure with hypoxia; R57.1 Hypovolemic shock; R57.8 Other shock; N17.9 Acute kidney failure, unspecified; D62 Acute posthemorrhagic anemia; E87.20 Acidosis, unspecified; E87.0 Hyperosmolality and hypernatremia; K56.7 Ileus, unspecified; K56.609 Unspecified intestinal obstruction, unspecified as to partial versus complete obstruction; N18.4 Chronic kidney disease, stage 4 (severe); I47.1 Supraventricular tachycardia; K57.33 Diverticulitis of large intestine without perforation or abscess with bleeding; E03.9 Hypothyroidism, unspecified; K21.9 Gastro-esophageal reflux disease without esophagitis; Z96.643 Presence of artificial hip joint, bilateral; F17.210 Nicotine dependence, cigarettes, uncomplicated; R31.9 Hematuria, unspecified; E87.5 Hyperkalemia; Z78.1 Physical restraint status; K66.0 Peritoneal adhesions (postprocedural) (postinfection); N28.89 Other specified disorders of kidney and ureter; I12.9 Hypertensive chronic kidney disease with stage 1 through stage 4 chronic kidney disease, or unspecified chronic kidney disease; E87.6 Hypokalemia; E83.39 Other disorders of phosphorus metabolism
CPT/HCPCS: 36415; 36416; 36430; 36600; 70450; 71045; 74018; 74176; 74177; 74250; 78278; 80048; 80053; 80202; 81001; 82040; 82553; 82805; 83605; 83690; 83735; 83880; 84100; 84439; 84443; 84484; 85014; 85018; 85025; 85027; 85384; 85610; 85730; 86850; 86900; 86901; 87040; 87077; 87149; 87186; 88307; 93005; 93010; 93306; 94002; 94003; 96374; 97139; A4217; A9560; C1776; C9113; G0378; J0171; J0360; J0613; J0692; J0694; J1644; J1940; J2060; J2185; J2270; J2272; J2370; J2405; J2543; J2550; J2704; J2710; J2765; J3010; J3370; J3370-JW; J3475; J3480; J3490; J7030; J7050; J7070; J7120; P9016; P9035; P9047; Q9967